=== PATIENT | female | born 1960 | race Caucasian/White ===

== ENCOUNTER → 2018-05-05 06:19 | Outpatient (CLI) | payer BC, SELFPAY ==
--- NOTE | 2018-05-05 10:14 | STRESSREP ---
Stress Test Report Exercise myocardial perfusion stress test. 58-year-old lady with a history of supraventricular tachyarrhythmias and hypertension. Stress protocol: Resting EKG demonstrates normal sinus rhythm with rate of 72 bpm normal intervals and noted resting blood pressures 122/86 centimeters of mercury. The patient exercised according to regular Kenn protocol for total duration of 6 minutes and 32 seconds. Patient maintained sinus rhythm until approximately 6 minutes and 26 seconds into the exercise. The patient then went into a wide complex tachyarrhythmia with a rate of approximately 169 bpm lasting approximately 22 beats. This was terminated with a cough. There were no ST or T-wave changes noted at rest or with peak exercise. No clinical angina was noted the resting blood pressure is 122/86 with a peak blood pressure 140/72 rate pressure product was 22,200. The maximum workload was 7.8 metabolic equivalents. Myocardial perfusion protocol. 11.8 mCi of technetium 99m sestamibi was injected at rest. The patient exercised for 6-1/2 minutes attaining 7.8 metabolic equivalents and completing 30 seconds into stage III of the Kenn protocol. At peak exercise 33.1 mCi of technetium 99m sestamibi was injected stress images were obtained stress and rest images were reconstructed and compared in the short axis vertical long and horizontal long axis. Gated images were also obtained Perfusion SPECT analysis. Review of the stress images demonstrate normal uptake of tracer noted in all areas of the myocardium. The resting images similarly demonstrated normal uptake of tracer noted in all areas of the myocardium. No areas of reversibility are noted suggest ischemia there is minimal apical striping noted. This is present on the stress and rest images to a similar extent. No obvious ischemia is noted. Gated SPECT analysis: Gated's ejection fraction was noted to be 62%. Conclusion: Exercise myocardial perfusion stress test with no evidence of ischemia noted. Preserved ejection fraction. Short run of supraventricular tachyarrhythmia noted terminating with vagal maneuver.
== END ==
LOC: CVS 06:20
PROVIDERS: Family Provider Internal Medicine; PCP Internal Medicine; Visit Provider Nurse Practitioner Family
DX: R07.9 Chest pain, unspecified (principal); I47.1 Supraventricular tachycardia
CPT/HCPCS: 78452; 93017; A9500; A4216

== ENCOUNTER 2018-05-31 21:55 | Emergency (ER) | payer BC, SELFPAY ==
[2018-05-31 21:56] VITALS: BP 160/99; PULSE 89; RESP 20; TEMP 36.7; O2SAT 95; BMI 32.1
--- NOTE | 2018-05-31 22:07 | CT_ITS ---
STUDY: CTA CHEST REASON FOR EXAM: Female, 58 years old. Upper back spasm RADIATION DOSAGE (If Supplied By Facility): CTDIvol = ( 19.86 ) mGy, DLP = ( 594.82 ) mGycm TECHNIQUE: The examination was performed with the intravenous administration of 100 ml of Isovue 370 contrast material. Post-processing of the angiographic images was performed, with multiplanar reformation and 3D reconstruction. Individualized dose optimization techniques were used for this CT. COMPARISON: None. FINDINGS: Normal enhancement of the main pulmonary artery and right and left pulmonary arteries. Normal enhancement of the bilateral peripheral pulmonary arteries. There is no demonstrated pulmonary embolism. Normal thoracic aorta and visualized great vessels. There is no demonstrated aortic dissection. There is mild cardiac enlargement. Normal mediastinum. There are calcified right hilar lymph nodes. Normal visualized trachea and bronchi. The lungs are under expanded. Marked low lung volume with elevation of the right hemidiaphragm. Compression of basilar parenchyma right greater than left base with atelectatic changes and possible airspace disease with scattered calcified nodules in the right lower lobe consistent with granulomata. Mild bronchus opacification in the lung bases and right middle lobe. Normal pleura. Normal chest wall structures. There are degenerative changes of thoracic spine. Splenic granuloma. Gallbladder is not visualized. Obesity. CT/CTA Chest W/WO Contrast IMPRESSION: No demonstrated pulmonary embolism, aneurysm, leak or arterial dissection. Marked shallow inspiratory level with compression of basilar parenchyma, bilateral atelectasis right greater than left and probable airspace disease such as an infiltrate in the right base. Electronically Signed: Tavia Ordaz MD at 0:00 EDT , Service support ,
[2018-05-31] MEDS: Ondansetron 4 MG/2 ML Vial IV (22:20)
[2018-05-31] MEDS: Morphine 4 MG/ML Syringe IV (22:20)
--- NOTE | 2018-05-31 22:22 | ED.VISSUMM ---
- ER Visit Summary Date of Service: 05/31/18 Chief Complaint: Back pain History of Present Illness: The patient is a 58 F presenting with right upper back pain. She states this started 1 week ago and has progressively worsened. She states it is worse with coughing, deep breathing, and movement. She was seen in urgent care on Saturday and diagnosed with a sinus infection. She states she does not have any sinus pain or congestion. She does have a nonproductive cough. She was started on doxycycline. She saw her primary care physician the next day and was given a muscle relaxer. She denies any direct trauma to her back. She states she does a lot of repetitive motion with her arms at work. She is scheduled to see a chiropractor on Saturday. She tried Advil at home as well. She denies chest pain or shortness of breath. Denies fever or other complaints. Physical Examination: Vitals are stable. Patient is afebrile. Alert no acute distress. HEENT exam is unremarkable. Neck is supple. Lungs are clear and equal bilaterally. Heart is regular rate and rhythm. Abdomen is soft nontender nondistended. Back: Right paraspinal thoracic muscle tenderness, no midline tenderness Extremities are unremarkable. Skin is warm and dry. No focal neurologic deficit. Remainder of exam is unremarkable. Emergency Department Course and Treatment: Patient is given morphine, Zofran IV. CBC, chemistries unremarkable. CTA chest shows no demonstrated pulmonary embolism, aneurysm, leak or arterial dissection. Marked shallow inspiratory level with compression of basilar parenchyma, bilateral atelectasis right greater than left and probable airspace disease such as an infiltrate in the right base. She is currently on her fourth day of doxycycline out of a 10 day course. She is advised to finish this antibiotic until complete. She was ambulated with a pulse ox of 93% on room air. She feels improved. She is advised to follow-up with her primary care physician. She is advised return to ED if she has any worsening complaints. Disposition: Discharged home Impression: Back pain, community acquired pneumonia This note was generated with true[employer]them dictation software. It may contain incorrect words, spelling, and punctuation that were not noted in review of the chart prior to signing ED Disposition - Plan for ED Patient: Chief Complaint: Back Instructions: ED Neck Back Pain General, ED Pneumonia Adult Prescriptions: Oxycodone HCl/Acetaminophen [Percocet 5/325] 1 tablet PO Q6H PRN PRN 3 Days #12 tablet PRN Reason: Pain Referrals: Martine Maldonado DO [Primary Care Provider] -
[2018-05-31 22:47] LABS: Absolute Lymphocyte Count 2.07 X10^3/ul (0.83-4.51); Absolute Neutrophil Count 6.3 X10^3/uL (2.0-7.7); Basophil# 0.05 X10^3/uL; Basophil% 0.5 % (0-1); Eosinophil# 0.29 X10^3/uL; Hematocrit 38.3 % (37-47); Hemoglobin 12.6 g/dl (12.0-15.0); Lymphocyte # 2.07 X10^3/ul (4.0); Lymphocyte % 21.3 % (19-41); Mean Corp Hgb Conc 32.9 g/gl (32-36); Mean Corpuscular Hgb 28.3 pg (27.0-32.0); Mean Corpuscular Volume 85.9 fL (81-99); Mean Platelet Vol. 8.9 fl (6.2-12.0); Monocyte# 0.93 X10^3/uL; Monocyte% 9.6 % (0-10); Neutrophil # 6.34 X10^3/uL (2.7-7.7); Neutrophil % 65.2 % (47-70); Platelet Count 391 K/mm3 (150-450); RBC Distribution Width SD 41.3 fl (35.1-43.9); Red Blood Count 4.46 M/mm3 (4.2-5.4); White Blood Count 9.7 K/mm3 (4.4-11.0)
[2018-05-31 22:51] LABS: POSITIVE COUNT NO; POSITIVE DIFFERENTIAL NO; POSITIVE MORPHOLOGY NO
[2018-05-31 22:57] LABS: Anion Gap 5 (5-15); BUN 13 mg/dL (7-18); BUN/Creat Ratio 15.4 RATIO (10-20); Calcium,Total 8.9 mg/dL (8.5-10.1); Chloride 105 mmol/L (98-107); Creatinine, Serum 0.85 mg/dL (0.55-1.02); EST Glomerular Filtration Rate 73 mL/min (>60); Est Glom Filt Rate - Afr Amer 88 mL/min (>60); Estimated Creatinine Clearance 68.44 ml/min; Glucose 118 mg/dL (74-106); Potassium 3.6 mmol/L (3.5-5.1); Sodium Level 139 mmol/L (136-145)
[2018-05-31 23:09] VITALS: BP 143/93; PULSE 87; RESP 14; O2SAT 91
[2018-05-31 23:35] VITALS: PULSE 79; RESP 15; O2SAT 94
[2018-06-01 00:16] VITALS: O2SAT 91
--- NOTE | 2018-06-01 00:18 | ED.DEP ---
ED Disposition - Plan for ED Patient: Chief Complaint: Back Instructions: ED Neck Back Pain General, ED Pneumonia Adult Prescriptions: Oxycodone HCl/Acetaminophen [Percocet 5/325] 1 tablet PO Q6H PRN PRN 3 Days #12 tablet PRN Reason: Pain Referrals: Martine Maldonado DO [Primary Care Provider] -
[2018-06-01] MEDS: oxyCODONE 5 MG Tablet PO (00:32)
[2018-06-01 00:33] VITALS: BP 131/92; PULSE 78; RESP 16; O2SAT 93
== END 2018-06-01 00:39 | disposition home or self-care (01) ==
LOC: ED 22:14
PROVIDERS: Emergency Provider Emergency Medicine; Family Provider Internal Medicine; PCP Internal Medicine
DX: M54.6 Pain in thoracic spine (principal); J18.9 Pneumonia, unspecified organism; I10 Essential (primary) hypertension; Z79.2 Long term (current) use of antibiotics; Z79.899 Other long term (current) drug therapy
CPT/HCPCS: 71275; 80048; 85025; 96374; 96375; 99283; Q9967; A4216; J2405

== ENCOUNTER → 2018-07-21 09:47 | Outpatient (CLI) | payer BC, SELFPAY ==
--- NOTE | 2018-07-21 09:50 | RAD_ITS ---
STUDY: X-RAY - LEFT HAND REASON FOR EXAM: Chronic pain at the base of the left thumb. TECHNIQUE: 3 view(s) of the hand. COMPARISON: Radiographs of the thumb 09/10/2017. FINDINGS: Normal radiocarpal articulation. There is mild joint space narrowing of the distal radioulnar joint. Normal visualized carpal bones. There is suspected widening of the scapholunate interval, also present on the prior study. There is joint space narrowing of the carpometacarpal articulation of the thumb. Normal second through fifth carpometacarpal joints. Normal metacarpi. Normal metacarpophalangeal joint of the thumb. There is a small marginal osteophyte of the base of the distal phalanx without joint space narrowing of the interphalangeal joint of the thumb. Normal proximal and distal phalanges of the thumb. Normal metacarpophalangeal joints of the second through fifth fingers. Normal proximal and distal interphalangeal joints of the second through fifth fingers. Normal phalanges of the second through fifth fingers. There is a small calcification dorsal to the distal diaphysis of the second middle phalanx. RAD/Hand Min 3 Views IMPRESSION: Arthrosis of the first carpometacarpal joint. Suspected chronic scapholunate ligament injury. Electronically Signed: Karri Carpenter MD at 10:10 EDT Tel , Service support ,
== END ==
PROVIDERS: Family Provider Internal Medicine; PCP Internal Medicine; Referring Provider Orthopaedic Surgery; Visit Provider Orthopaedic Surgery
DX: M79.645 Pain in left finger(s) (principal)
CPT/HCPCS: 73130

== ENCOUNTER → 2018-08-12 06:53 | Outpatient (CLI) | payer BC, SELFPAY ==
--- NOTE | 2018-08-12 12:19 | PFT ---
INTRODUCTION: The patient is a 58-year-old female that presents for pulmonary function testing secondary to a diagnosis of chronic cough. Respiratory therapy reports good patient effort. Bronchodilators were used during testing. INTERPRETATION: Forced expiration spirometry demonstrates no evidence of a large airways obstructive ventilatory defect. There was no significant response to aerosolized bronchodilators, based upon strict ATS criteria. However, the patient did have a rather robust mid flow bronchodilator response. Spirograms are of good quality and plateau normally. Body plethysmography was performed and reveals lung volumes to be within normal limits. Diffusing capacity by single breath CO is within normal limits at 94% of predicted. IMPRESSION: Grossly normal pulmonary function testing with potential stigmata of small airways disease. If asthma is of clinical concern, a methacholine challenge can be offered.
== END ==
PROVIDERS: Family Provider Internal Medicine; PCP Internal Medicine; Referring Provider Internal Medicine Critical Care Medicine; Visit Provider Internal Medicine Critical Care Medicine
DX: R05 Cough (principal); R93.89 Abnormal findings on diagnostic imaging of other specified body structures
CPT/HCPCS: 94060; 94726; 94729

== ENCOUNTER → 2018-09-26 09:08 | Outpatient (CLI) | payer BC, SELFPAY ==
[2018-08-07 07:46] VITALS: BMI 32.1
[2018-09-26 09:20] LABS: Bacteria 0 SEEN /hpf (None Seen); Mucous, Urine 0 SEEN /hpf (<or=2+)
[2018-09-26 10:37] LABS: Absolute Lymphocyte Count 1.79 X10^3/ul (0.83-4.51); Absolute Neutrophil Count 2.8 X10^3/uL (2.0-7.7); Basophil# 0.03 X10^3/uL; Basophil% 0.6 % (0-1); Eosinophil# 0.17 X10^3/uL; Eosinophils% 3.2 % (0-5); Hematocrit 42.7 % (37-47); Hemoglobin 13.7 g/dl (12.0-15.0); Lymphocyte # 1.79 X10^3/ul (4.0); Lymphocyte % 33.6 % (19-41); Mean Corp Hgb Conc 32.1 g/gl (32-36); Mean Corpuscular Hgb 27.5 pg (27.0-32.0); Mean Corpuscular Volume 85.6 fL (81-99); Mean Platelet Vol. 9.3 fl (6.2-12.0); Monocyte# 0.55 X10^3/uL; Monocyte% 10.3 % (0-10); Neutrophil # 2.77 X10^3/uL (2.7-7.7); Neutrophil % 52.1 % (47-70); POSITIVE COUNT NO; POSITIVE DIFFERENTIAL NO; POSITIVE MORPHOLOGY NO; Platelet Count 273 K/mm3 (150-450); RBC Distribution Width CV 13.6 % (11.6-14.6); RBC Distribution Width SD 42.5 fl (35.1-43.9); Red Blood Count 4.99 M/mm3 (4.2-5.4); White Blood Count 5.3 K/mm3 (4.4-11.0)
[2018-09-26 10:43] LABS: Color, Urine Yellow (Yellow); Glucose, Dipstick Normal (Normal); Ketone-Dipstick Negative (Negative); Leukocyte Esterase-Dipstick 25 /ul (Negative); Nitrite-Dipstick Negative (Negative); Occult Blood-Urine 10 /ul (Negative); Protein-Dipstick Negative (Negative); Specific Gravity, Urine 1.015 (1.002-1.030); Urine Bilirubin Dipstick Negative (Negative); Urine Clarity Clear (Clear); Urine Urobilinogen Normal (Normal); Urine pH 6.5 (5.0 - 8.0)
[2018-09-26 11:02] LABS: Microalbumin:Creatinine Ratio 9.5 mg/g CRE (<30 mg/g CRE)
[2018-09-26 11:14] LABS: Vitamin B12 280 pg/mL (211-911)
[2018-09-26 11:19] LABS: Red Blood Cells-Urine 0-5 SEEN /hpf (0-5); Squamous Epithelial Cells - UA 0-5 SEEN /hpf (5-10); White Blood Cells 0-5 SEEN /hpf (0-5)
[2018-09-26 11:21] LABS: ALB/GLOB Ratio 1.2 RATIO (0.9-2.4); AST(SGOT) 20 U/L (15-37); Alanine Aminotransfer ALT/SGPT 11 U/L (13-56); Albumin, Serum 3.7 g/dL (3.2-5.0); Alkaline Phosphatase 53 U/L (45-117); Anion Gap 6 (5-15); BUN 15 mg/dL (7-18); BUN/Creat Ratio 18.8 RATIO (10-20); Calcium,Total 8.4 mg/dL (8.5-10.1); Chloride 106 mmol/L (98-107); Cholesterol 183 mg/dL (200); EST Glomerular Filtration Rate 78 mL/min (>60); Est Glom Filt Rate - Afr Amer 94 mL/min (>60); Free T3 2.5 pg/mL (2.18-3.98); Globulin 3.1 g/dL (2.2-4.2); Glucose 93 mg/dL (74-106); High Density Lipoprotein 49 mg/dL; Potassium 3.8 mmol/L (3.5-5.1); Protein, Total 6.8 g/dL (6.4-8.2); Sodium Level 141 mmol/L (136-145); T4 Free Direct 1.38 ng/dL (0.76-1.46); Thyroid Stim Hormone (TSH) 1.31 uIU/mL (0.358-3.74); Triglycerides 60 mg/dL; Very Low Density Lipoprotein 12 mg/dL (5-40)
== END ==
PROVIDERS: Family Provider Internal Medicine; PCP Internal Medicine; Referring Provider Internal Medicine; Visit Provider Internal Medicine
DX: I10 Essential (primary) hypertension (principal); E03.9 Hypothyroidism, unspecified; E53.8 Deficiency of other specified B group vitamins
CPT/HCPCS: 36415; 80053; 80061; 81001; 82043; 82570; 82607; 84439; 84443; 84481; 85025

== ENCOUNTER → 2019-04-29 | Outpatient (CLI) | payer BC, SELFPAY ==
[2019-04-29 11:38] VITALS: BMI 32.1
== END | disposition home or self-care (01) ==
LOC: LABSPEC 14:28
PROVIDERS: Family Provider Internal Medicine; PCP Internal Medicine; Referring Provider Physician Assistant; Visit Provider Physician Assistant
DX: J02.9 Acute pharyngitis, unspecified (principal)
CPT/HCPCS: 87081

== ENCOUNTER → 2019-05-04 | Outpatient (CLI) | payer BC, SELFPAY ==
[2019-04-29 11:38] VITALS: BMI 32.1
== END | disposition home or self-care (01) ==
LOC: LABSPEC 15:30
PROVIDERS: Family Provider Internal Medicine; PCP Internal Medicine; Referring Provider Otolaryngology Otolaryngology/Facial Plastic Surgery; Visit Provider Otolaryngology Otolaryngology/Facial Plastic Surgery
DX: J32.9 Chronic sinusitis, unspecified (principal); J02.9 Acute pharyngitis, unspecified
CPT/HCPCS: 87070; 87205

== ENCOUNTER → 2019-08-10 | Outpatient (CLI) | payer BC, SELFPAY ==
[2019-08-11 06:34] VITALS: BMI 32.5
[2019-08-11 14:11] LABS: Bacteria 0 SEEN /hpf (None Seen); Mucous, Urine 0 SEEN /hpf (<or=2+); Red Blood Cells-Urine 0 SEEN /hpf (0-5); White Blood Cells 0 SEEN /hpf (0-5)
[2019-08-11 14:31] LABS: Color, Urine Yellow (Yellow); Glucose, Dipstick Normal (Normal); Ketone-Dipstick Negative (Negative); Leukocyte Esterase-Dipstick Negative /ul (Negative); Nitrite-Dipstick Negative (Negative); Occult Blood-Urine Negative /ul (Negative); Protein-Dipstick Negative (Negative); Specific Gravity, Urine 1.015 (1.002-1.030); Urine Bilirubin Dipstick Negative (Negative); Urine Clarity Clear (Clear); Urine Urobilinogen Normal (Normal)
[2019-08-11 14:33] LABS: Squamous Epithelial Cells - UA 0-5 SEEN /hpf (5-10)
== END | disposition home or self-care (01) ==
LOC: LABSPEC 08-11 13:48
PROVIDERS: Family Provider Internal Medicine; PCP Internal Medicine; Referring Provider Physician Assistant Surgical; Visit Provider Physician Assistant Surgical
DX: R30.0 Dysuria (principal)
CPT/HCPCS: 81001; 87086; 87088

== ENCOUNTER → 2019-09-14 14:49 | Outpatient (CLI) | payer BC, SELFPAY ==
[2019-08-11 06:34] VITALS: BMI 32.5
[2019-09-17 16:07] LABS: Age Gdln ACOG Testing 30-65 (.)
[2019-09-18 08:50] LABS: HPV APTIMA, High Risk Negative (Negative)
[2019-09-18 08:51] LABS: HPV Reflexed? YES, CHARGE PATIENT
== END ==
PROVIDERS: Visit Provider Obstetrics & Gynecology
DX: Z12.4 Encounter for screening for malignant neoplasm of cervix (principal)
CPT/HCPCS: 87624; 88175; G0145

== ENCOUNTER → 2019-09-30 16:15 | Outpatient (CLI) | payer BC, SELFPAY ==
[2019-08-11 06:34] VITALS: BMI 32.5
--- NOTE | 2019-09-30 16:17 | BI_ITS ---
MAMMOGRAPHY - BILATERAL SCREENING REASON FOR EXAM: Female, 59 years old. Routine annual screening examination. PERTINENT HISTORY: Sister with breast cancer. Mother with breast cancer. Grandmother with breast cancer. TECHNIQUE: Digital bilateral breast lety (3D mammographic acquisition) in the CC and MLO projections. 2-D mediolateral oblique (MLO) and craniocaudad (CC) views of both breasts were obtained. CAD: Full Field Digital Mammography with Computer Added Detection was performed. COMPARISON: Comparison is made with prior examination dated September 09, 2017 and January 30, 2016. FINDINGS: Breast Composition: The breasts are almost entirely fatty. There are no dominant masses or suspicious calcifications. Stable benign-appearing bilateral axillary lymph nodes. Stable 5.7 mm well-defined nodule in the deep mid lateral aspect of the left breast suggestive of a small intramammary lymph node. No other significant abnormalities are identified. There has been no significant change since the prior study. BI/SCREEN MAMM (CAD) W/LETY BILAT IMPRESSION: Stable bilateral screening mammogram. Yearly follow-up mammogram recommended. (A) ASSESSMENT CATEGORY: BIRADS Category 2: Benign. A letter regarding these results will be sent to the patient by the facility within 30 days. Approximately 10% of breast cancers are not detected by mammography. A normal mammogram should not delay biopsy of a clinically suspicious abnormality. [id number] Electronically Signed: Nestor Bunn, at 8:48 EST , Service support ,
== END ==
PROVIDERS: Family Provider Internal Medicine; PCP Internal Medicine; Referring Provider Obstetrics & Gynecology; Visit Provider Obstetrics & Gynecology
DX: Z12.31 Encounter for screening mammogram for malignant neoplasm of breast (principal)
CPT/HCPCS: 77063; 77067

== ENCOUNTER → 2020-08-27 10:31 | Outpatient (CLI) | payer BC, SELFPAY ==
[2019-08-11 06:34] VITALS: BMI 32.5
[2020-08-27 10:36] LABS: Mucous, Urine 0 SEEN /hpf (<or=2+); Red Blood Cells-Urine 0 SEEN /hpf (0-5)
[2020-08-27 11:06] LABS: Color, Urine Yellow (Yellow); Glucose, Dipstick Normal (Normal); Ketone-Dipstick 5 mg/dl (Negative); Leukocyte Esterase-Dipstick 100 /ul (Negative); Nitrite-Dipstick Negative (Negative); Occult Blood-Urine 10 /ul (Negative); Protein-Dipstick Negative (Negative); Urine Bilirubin Dipstick Negative (Negative); Urine Clarity Sl. Cloudy (Clear); Urine Urobilinogen Normal (Normal)
[2020-08-27 11:07] LABS: Absolute Lymphocyte Count 2.06 X10^3/uL (0.83-4.51); Absolute Neutrophil Count 3.2 X10^3/uL (2.0-7.7); Basophil# 0.04 X10^3/uL; Basophil% 0.7 % (0-1); Eosinophil# 0.15 X10^3/uL; Eosinophils% 2.5 % (0-5); Hematocrit 44.1 % (37-47); Hemoglobin 14.1 g/dL (12.0-15.0); Lymphocyte # 2.06 X10^3/ul (4.0); Lymphocyte % 33.8 % (19-41); Mean Corpuscular Volume 87.5 fL (81-99); Mean Platelet Vol. 9.4 fl (6.2-12.0); Monocyte# 0.59 X10^3/uL; Monocyte% 9.7 % (0-10); NRBC Flagged by Analyzer 0 % (0-5); Neutrophil # 3.24 X10^3/uL (2.7-7.7); Platelet Count 323 K/mm3 (150-450); RBC Distribution Width SD 41.9 fl (35.1-43.9); Red Blood Count 5.04 M/mm3 (4.2-5.4); White Blood Count 6.1 K/mm3 (4.4-11.0)
[2020-08-27 11:13] LABS: Bacteria RARE /hpf (None Seen); Squamous Epithelial Cells - UA 0-5 SEEN /hpf (5-10); White Blood Cells 0-5 SEEN /hpf (0-5)
[2020-08-27 11:27] LABS: ALB/GLOB Ratio 1.2 RATIO (0.9-2.4); AST(SGOT) 21 U/L (15-37); Alanine Aminotransfer ALT/SGPT 18 U/L (13-56); Albumin, Serum 3.9 g/dL (3.2-5.0); Alkaline Phosphatase 46 U/L (45-117); Anion Gap 5 (5-15); BUN 15 mg/dL (7-18); BUN/Creat Ratio 17.5 RATIO (10-20); Calcium,Total 8.4 mg/dL (8.5-10.1); Chloride 101 mmol/L (98-107); Cholesterol 202 mg/dL (200); Creatinine, Serum 0.86 mg/dL (0.55-1.02); EST Glomerular Filtration Rate 71 mL/min (>60); Est Glom Filt Rate - Afr Amer 86 mL/min (>60); Globulin 3.3 g/dL (2.2-4.2); Glucose 97 mg/dL (74-106); High Density Lipoprotein 53 mg/dL; Potassium 3.6 mmol/L (3.5-5.1); Protein, Total 7.2 g/dL (6.4-8.2); Sodium Level 137 mmol/L (136-145); Thyroid Stim Hormone (TSH) 1.42 uIU/mL (0.358-3.74); Triglycerides 68 mg/dL; Very Low Density Lipoprotein 14 mg/dL (5-40)
[2020-08-27 11:42] LABS: Microalbumin,Random Urine 15.4 mg/L (NO RANGE EST.)
== END ==
PROVIDERS: PCP Internal Medicine; Referring Provider Internal Medicine; Visit Provider Internal Medicine
DX: I10 Essential (primary) hypertension (principal); E03.9 Hypothyroidism, unspecified
CPT/HCPCS: 36415; 80053; 80061; 81001; 82043; 82570; 84443; 85025

== ENCOUNTER → 2020-11-17 16:43 | Outpatient (CLI) | payer OTHER, SELFPAY ==
[2020-08-30 12:18] VITALS: BMI 31.9
--- NOTE | 2020-11-17 16:46 | MRI_ITS ---
STUDY: MRI LEFT KNEE REASON FOR EXAM: Female, 60 years old. Pain TECHNIQUE: Standardized fat and water weighted pulse sequences were obtained in all 3 orthogonal planes. COMPARISON: X-ray November 08, 2020 FINDINGS: There is loss of substance with tear of the posterior horn and body of the medial meniscus, series 3 images through . Normal hyaline cartilage of the medial femorotibial compartment. Normal medial femoral condyle and tibial plateau. There is a partial sprain of the MCL with interstitial and periligamentous edema. Normal distal semimembranosus, gracilis and semitendinosus tendons. Normal lateral meniscus. There is diffuse, less than 50% thickness articular cartilage loss of the lateral femorotibial compartment. Normal lateral femoral condyle and tibial plateau. Normal proximal tibiofibular articulation. Normal lateral collateral (fibular) ligament. Normal popliteus tendon. Normal biceps femoris tendon. Normal anterior cruciate ligament (ACL). Normal posterior cruciate ligament (PCL). There is arthrosis of the patellofemoral articulation. There is diffuse, greater than 50% thickness articular cartilage loss of the patellofemoral compartment. Normal medial and lateral patellar retinaculum. Normal quadriceps tendon. Normal patellar tendon. Normal Hoffa''s fat pad. There is a small volume joint effusion. There is a 6.3 cm Duggan''s cyst. The soft tissues are unremarkable. The otherwise visualized osseous structures are unremarkable. MRI/Lower Ext Joint Only (Routine) IMPRESSION: Medial meniscus tear Medial collateral ligament sprain. Degenerative changes Joint effusion with popliteal cyst Electronically Signed: Nelson Panchal MD at 0:00 EST , Service support ,
== END ==
PROVIDERS: PCP Internal Medicine; Referring Provider Orthopaedic Surgery; Visit Provider Orthopaedic Surgery
DX: S83.242A Other tear of medial meniscus, current injury, left knee, initial encounter (principal)
CPT/HCPCS: 73721

== ENCOUNTER 2020-12-14 05:50 | Day surgery (SDC) | payer OTHER, SELFPAY ==
[2020-08-30 12:18] VITALS: BMI 31.9
--- NOTE | 2020-12-14 06:16 | HP_ITS ---
I have re-examined the patient. There are no clinical changes since date of exam. Intake Intake Visit Reasons: LEFT KNEE Allergies acetaminophen [From Vicodin] Allergy (Verified 11/08/20 14:22) Unknown hydrocodone [From Vicodin] Allergy (Verified 11/08/20 14:22) Unknown Penicillins [PCN] Adverse Reaction (Verified 11/08/20 14:22) Hives [facility] Medical History Essential (primary) hypertension (Chronic) Anxiety (Chronic) Back pain (Chronic) Colon polyp (Chronic) Congenital hypothyroidism (Chronic) Costochondritis (Chronic) Degeneration, intervertebral disc, lumbar (Chronic) Female pelvic pain (Chronic) GERD (gastroesophageal reflux disease) (Chronic) Insomnia (Chronic) ELÍAS (obstructive sleep apnea) (Chronic) Obesity (Chronic) Osteoarthritis (Chronic) PVD (peripheral vascular disease) (Chronic) RLS (restless legs syndrome) (Chronic) Radiculopathy of cervical region (Chronic) Segmental and somatic dysfunction of cervical region (Chronic) Segmental and somatic dysfunction of head region (Chronic) Segmental and somatic dysfunction of lumbar region (Chronic) Segmental and somatic dysfunction of thoracic region (Chronic) Thoracic neuritis (Chronic) Vitamin B12 deficiency (Chronic) Pneumonia (Resolved) Back pain (Inactive) Diastolic dysfunction (Inactive) Paroxysmal supraventricular tachycardia (Inactive) Surgical History History of cholecystectomy (Resolved) History of lumbar surgery (Resolved) History of tonsillectomy (Resolved) Hx of hernia repair (Resolved) Family History Mother CAD (coronary artery disease) Breast cancer CVA (cerebral vascular accident) Dementia Brother CAD (coronary artery disease) Sister Breast cancer Grandmother Breast cancer Father Dementia Social History (Updated 11/24/20 @ 11:[address] Emily Leon DO) household members: spouse housing: house current occupational status: employed current occupation: [employer] pets and animals: Yes pets and animals: dog(s) Smoking Status: Never smoker second hand exposure: No alcohol intake: never substance use type: does not use caffeine: Yes Type: coffee Number of servings: 2 HPI LEFT KNEE: Surgical H&P: Yes Details: Parts of this documentation were recorded by a scribe, this documentation accurately reflects the service provided and the decisions made by me, Dr. Emliy Leon, 11/24/20 1021. ROSALINDA GARCIA is a 60 year old F here today for F/U on left knee after having MRI of the knee. Continues to have all medial knee pain. She states that she does have painful popping of the knee and when she stands at times her knee feels like it will give out. Denies numbness, tingling or other associated symptoms. Denies any changes in medications or allergies. ROS Musc Reports joint pain, Denies joint swelling, Reports limited joint movement, Denies numbness, Reports stiffness, Denies tingling Skin/Breast Reports system reviewed and no additional complaints, except as docu Neuro Yes system reviewed and no additional complaints, except as docu, No numbness, No tingling Ortho Exam Left Knee Skin/Wound: Yes CDI, No ecchymosis, No erythema, Yes swelling Knee ROM: Yes ROM-Extension -20 to 0 (unable) Examination: Yes med jt line tenderness, Yes Pain with flexion, Yes Consuelo's Test Stability: NML: Anterior Drawer, NML: Raza, NML: Posterior Drawer Patella Grind: Yes Negative Kiah Assessment & Plan Problems 1. Tear of medial meniscus of left knee, current, unspecified tear type, subsequent encounter S83.242D Plan Personally reviewed patients MRI of the left knee. Educated that she does have a medial meniscus tear. There is not a lot of cartilage wear noted on MRI or x- rays. Treatment options are do nothing or PT or bracing or injection or left knee scope for meniscectomy vs meniscus repair. Educated that if she does have the knee scope this can cause her to develop OA sooner than she would if she didn't have surgery. Reviewed the pre-operative plans with the patient. Risks and benefits of the procedure were fully explained, including but not limited to infection, neurovascular injury, continued pain, arthritis, stiffness, need for further surgery, re-injury, DVT, PE, general risks of anesthesia, and loss of limb or life. The patient understands all the risks and does wish to proceed with written consent for left knee arthroscopy medial meniscectomy vs meniscus repair, surgery as indicated. She wishes to have surgery the week of 12/12/2020. Follow up 2 weeks post op or sooner if pain, swelling, numbness or associated symptoms, or concerns develop. All questions answered. Patient in agreement of plan. Plan Detail Goals Decrease spasm and inflammation Improve ROM Improve ability to lift Barriers Posture Coding Level of Care Code Off vis,est,level 4 Diagnoses Tear of medial meniscus of left knee, current, unspecified tear type, subsequent encounter S83.242D ??Encounter type: subsequent encounter ??Meniscus tear of knee type: unspecified type ??Tear current or old: current COVID (Procedure Consent) Procedure Criteria Procedure Criteria: Yes Elective The surgeon/proceduralist and patient have discussed in detail the risk of exposure to and/or potential harm posed by the COVID-19 virus with having a surgery/procedure at this time versus the risk of? delaying the surgery/procedure. It is not possible to know either the risk of delaying the surgery or procedure or chance of getting an infection with perfect accuracy, but a joint decision was made between the patient and the surgeon/proceduralist ?to proceed at this time with the scheduled surgery/procedure as indicated on the consent form.
[2020-12-14 06:20] VITALS: BP 124/90; PULSE 75; RESP 18; TEMP 36.6; O2SAT 97; BMI 31.2
[2020-12-14] MEDS: Lactated Ringers 1,000 ML 100 ML IV (06:20)
[2020-12-14] MEDS: Cefazolin 2 GM in 0.9% Normal Saline 100 ML IV (07:19)
--- NOTE | 2020-12-14 08:06 | PCM.DC.ORTHO ---
Discharge Diet: No Restrictions - Remove dressings postop day 4 and apply Band-Aids to incision sites, may shower and get incision wet postop day 4, weight-bear as tolerated left leg, call with increased pain numbness tingling or further issues arise, call if calf pain or calf swelling, start aspirin 325 bid postop day 1, Discharge Activity: May Not Drive May shower in (days): 1 Ice area for (Minutes): 20 - Every hour while awake. Weight Bearing Status: Weight bearing as tolerated Keep extremity elevated above heart level: Operative Extremity Call your doctor if your incision/area has: Continuous Slow Oozing, Sudden Increased Bleeding, Increased Pain/ Swelling, Increased Redness, Foul Smelling Discharge Call your doctor if you observe: Fever of 101 or Higher, Coldness, Increased Pain, Numbness or Tingling, Change in Color, Calf discomfort Allergies/Adverse Reactions: Allergies acetaminophen [From Vicodin] Allergy (Verified 12/14/20 06:25) Unknown hydrocodone [From Vicodin] Allergy (Verified 12/14/20 06:25) Unknown Penicillins [PCN] Allergy (Verified 12/14/20 06:25) Hives Medications to take at Discharge Carbidopa/Levodopa 25/100 [Sinemet] 2 tab PO QHS 08/04/16 Lisinopril [Zestril] 20 mg PO DAILY 08/04/16 traZODone [Desyrel] 200 mg PO QHS 08/04/16 levothyroxine 112 mcg tablet 112 mcg PO DAILY #90 tab 07/14/19 cholecalciferol (vitamin D3) 25 mcg (1,000 unit) capsule 25 mcg PO DAILY 08/30/20 cyanocobalamin (vitamin B-12) 1,000 mcg/mL injection solution 100 mcg SC QMONTH ml 08/30/20 hydrochlorothiazide 25 mg tablet 25 mg PO DAILY #90 tab 08/30/20 Hydroxyzine HCl 25 mg PO QHS 12/07/20 Hydrocodone Bitart/Apap 5-325 [[place] 5MG-325MG] 1 - 2 tablet PO Q6H PRN PRN 5 Days #40 tablet 12/14/20 The following prescriptions were given: Hydrocodone Bitart/Apap 5-325 [[place] 5MG-325MG] 1 - 2 tablet PO Q6H PRN PRN 5 Days #40 tablet PRN Reason: Pain Transmission Status: Sent to [facility] Primary Care Physician: Martine Maldonado DO [Primary Care Provider] - Test Results: Test results from this visit will be discussed in further detail at your follow-up appointment, if applicable. Please Follow Up With: Emily Leon DO - [phone]
--- NOTE | 2020-12-14 08:08 | PCM.OPRPT ---
Report of Operation Date of Procedure: 12/14/20 Pre-Operative Diagnosis: left knee medial meniscus tear, osteoarthritis Post-Operative Diagnosis: same, lateral meniscus tear Surgery/Procedure Performed:: salk, pmm, plm, trochleoplasty, mfc chondroplasty electroless plater: Americo Carranza Type of Anesthesia:: General Anesthesiologist: Arley Cisse Fluids Replaced: 800cc lr Description of Procedure: Preop note Patient is a 60-year-old female with continued left knee pain instability locking. Failed conservative treatment MRI confirms medial meniscus tear osteoarthritis. Risk benefits and alternatives surgery discussed with patient. Risk include but not limited to blood loss, blood clot, infection, neurovascular, failure procedure, loss of life and loss of limb. Patient is aware like proceed with left knee arthroscopy repair as indicated. On physical exam she does have tenderness along her medial joint line she has negative Homans and no obvious effusion today. We discussed the current risk associated COVID-19. While it is understood that there is a community spread of COVID 19 the risk of jaimie COVID-19 while at [facility] is very low, however, the risk cannot be completely mitigated because of the community spread of the disease. We discussed in detail the risk of exposure to and or potential harm posed by the COVID-19 virus with having a surgery/procedure at this time versus the risk of delaying the surgery/procedure. Is not possible to know either the risk of delaying the surgery procedure or chance of getting an infection with perfect accuracy, but a joint decision was made to proceed at this time with a schedule surgery/procedure as indicated on the consent form. Patient was notified that we will need to comply with any screening or testing [facility] wishes to perform or that surgery may be delayed for any positive results. Operative note Patient seen and examined preoperative holding area. Left knee was marked. Patient brought to the operating procedure placed supine on the operating table. Signed, anesthesia, antibiotics were administered. The left leg was prepped prepped and draped in usual sterile technique with a tourniquet around her upper thigh. All bony prominences well-padded and SCDs placed on her contralateral limb. We then marked out our portal placement anterior lateral anteromedial portal placements for her left knee. Left leg was then elevate exsanguinated and tourniquet was raised her pressure of 250 torr. Timeout was performed. We then used an 11 blade to create her anterior lateral portal and direct began our diagnostic arthroscopy. Patellofemoral joint was unremarkable with the patella side however on the trochlear side she had grade 3 eburnated changes throughout. We then moved to the medial joint line and created anterior medial portal under direct visualization. Greater than the probe there was actually a flipped mid body medial meniscus tear that was flipped into the medial joint line we brought the foot portion out into the articular surface and then trimmed back with combination of a basket and shaver. We then reinserted our probe and made sure we had a stable remnant meniscus remaining which we did have. There was some grade 2 fibrillated changes and some grade 3 eburnated changes, throughout the medial femoral condyle this was gently debrided back with a shaver very loosely. The ACL and PCL were present in the notch. The medial tibial plateau was intact and stable probing. We then moved to the lateral joint line. The lateral femoral condyle was intact stable probing. There was a fissure in the lateral tibial plateau and there is a radial little parrot-beak tear of the posterior horn of the lateral meniscus. With this was resected back with combination of shaver and a basket. We then gently debrided back the trochlea as well as we did atrophic past as well as the [facility] chondroplasty medial lateral meniscectomies. The knee was then irrigated copious sterile saline. We injected the knee with 8 cc prilocaine core percent and 2 cc Kenalog 40. Sterile dressings were applied after the incision was closed with interrupted 4-0 nylon stitches. Tourniquet was deflated for total working time of 21 minutes. Patient taught procedure well no complications transferred recovery room in stable condition. Postoperative Weight-bear as tolerated left leg Pharmacy has pain prescription Start aspirin 325 twice daily tomorrow We will give pictures to patient in 2 weeks Call with increased pain numbness tingling further issues arise Dragon disclaimer
[2020-12-14] MEDS: Mupirocin Ointment 22gm Tube 1 APPLIC (08:09)
[2020-12-14] MEDS: Epinephrine (1 mg/ml) 1 MG/ML VIAL (08:09)
[2020-12-14] MEDS: Bupivacaine Mpf 0.5% 30 ML VIAL (08:10)
[2020-12-14] MEDS: Triamcinolone Acetonide 40 MG/ML Vial (08:10)
[2020-12-14 08:17] VITALS: BP 124/77; BP 124/90; PULSE 88; RESP 16; TEMP 36.3; O2SAT 94
[2020-12-14 08:26] VITALS: BP 107/81; BP 124/90; PULSE 71; RESP 18; O2SAT 94
[2020-12-14 08:30] VITALS: BP 116/77; BP 124/90; PULSE 70; RESP 18; O2SAT 97
[2020-12-14 08:41] VITALS: BP 124/90; BP 126/82; PULSE 70; RESP 18; TEMP 36.1; O2SAT 100
[2020-12-14 09:20] VITALS: BP 124/90; BP 128/68; PULSE 65; RESP 16; TEMP 36.3; O2SAT 95
== END 2020-12-14 09:22 | disposition home or self-care (01) ==
LOC: SDC 05:52 → AC 05:52
PROVIDERS: PCP Internal Medicine; Referring Provider Orthopaedic Surgery; Visit Provider Orthopaedic Surgery
PROC: (CPT 29882; principal; 2020-12-14 07:10)
DX: S83.242A Other tear of medial meniscus, current injury, left knee, initial encounter (principal); S83.282A Other tear of lateral meniscus, current injury, left knee, initial encounter; M17.12 Unilateral primary osteoarthritis, left knee; I10 Essential (primary) hypertension; F41.9 Anxiety disorder, unspecified; E03.1 Congenital hypothyroidism without goiter; K21.9 Gastro-esophageal reflux disease without esophagitis; E66.9 Obesity, unspecified; I73.9 Peripheral vascular disease, unspecified; G47.30 Sleep apnea, unspecified; G25.81 Restless legs syndrome; Z68.31 Body mass index [BMI] 31.0-31.9, adult; Z20.822 Contact with and (suspected) exposure to COVID-19; Z79.899 Other long term (current) drug therapy; X58.XXXA Exposure to other specified factors, initial encounter; Y93.89 Activity, other specified; Y92.89 Other specified places as the place of occurrence of the external cause; Y99.8 Other external cause status
CPT/HCPCS: 29880; 87426; C9803; J7120; J2405

== ENCOUNTER → 2020-12-22 08:09 | Outpatient (CLI) | payer OTHER, SELFPAY ==
[2020-12-14 06:20] VITALS: BMI 31.2
--- NOTE | 2020-12-22 08:10 | BI_ITS ---
MAMMOGRAPHY - BILATERAL SCREENING REASON FOR EXAM: Female, 60 years old. Routine annual screening examination. PERTINENT HISTORY: Sister with breast cancer. Mother with breast cancer. Grandmother with breast cancer. TECHNIQUE: Digital bilateral breast lety (3D mammographic acquisition) in the CC and MLO projections. 2-D mediolateral oblique (MLO) and craniocaudad (CC) views of both breasts were obtained. CAD: Full Field Digital Mammography with Computer Added Detection was performed. COMPARISON: Comparison is made with prior study dated 09/30/2019 and 09/09/2017. FINDINGS: Breast Composition: The breasts are almost entirely fatty. There are no dominant masses or suspicious calcifications. Stable small benign appearing bilateral axillary lymph nodes. Stable 5.7 mm well-defined nodule in the deep mid lateral aspect of the left breast suggestive of a small intramammary lymph node. No other significant abnormalities are identified. There has been no significant change since the prior study. BI/SCRN MAMM (CAD)W/LETY BILAT IMPRESSION: Stable bilateral screening mammogram. Yearly follow-up mammogram recommended. (A) ASSESSMENT CATEGORY: BIRADS Category 2: Benign. A letter regarding these results will be sent to the patient by the facility within 30 days. Approximately 10% of breast cancers are not detected by mammography. A normal mammogram should not delay biopsy of a clinically suspicious abnormality. [id number] Electronically Signed: Nestor Bunn MD at 8:50 EST , Service support ,
== END ==
PROVIDERS: PCP Internal Medicine; Referring Provider Student in an Organized Health Care Education/Training Program; Visit Provider Student in an Organized Health Care Education/Training Program
DX: Z12.31 Encounter for screening mammogram for malignant neoplasm of breast (principal)
CPT/HCPCS: 77063; 77067

== ENCOUNTER 2021-01-18 12:30 | Outpatient (RCR) | payer OTHER, SELFPAY ==
--- NOTE | 2021-02-23 10:23 | HP.PT.NRP ---
ROSALINDA GARCIA was seen in my office for initial evaluation on 01/02/21. The following Plan of Care was established for this patient: Initial Frequency: 2x /Week Initial Duration: 4 Weeks Patient/Client Instruction: Educate patient on: Plan of Care For the Purpose of:: To improve muscle performance and motor function Therapeutic Exercise to Include: Strength training, Power training, Endurance training, Balance training, Body mechanics, Postural training, Flexibilty training For the Purpose of:: To improve muscle performance and motor function, To increase tolerance to activity/condition/position Cryotherapy (ice pack, ice massage): Yes Thermo therapy (hot pack): Yes This patient was last seen in our office . Pertinent comments regarding their Physical therapy will appear below: Patient has not attended PT in over 30 days, appropriate for d/c and return to MD for further evaluation as needed. At this point I will be discontinuing this patient from physical therapy. I would be happy to see this patient again in the future if found appropriate by the physician. Thank you! Kim Cooney DPT
== END 2021-01-18 19:00 | disposition home or self-care (01) ==
LOC: PT 12:30
PROVIDERS: PCP Internal Medicine; Visit Provider Orthopaedic Surgery
DX: Z47.89 Encounter for other orthopedic aftercare (principal)
CPT/HCPCS: 97110; 97162; 97530

== ENCOUNTER → 2021-07-24 07:20 | Outpatient (CLI) | payer OTHER, SELFPAY ==
--- NOTE | 2021-07-24 07:21 | MRI_ITS ---
STUDY: MRI RIGHT KNEE REASON FOR EXAM: Right knee pain around the patella for 3 weeks, right knee injury. TECHNIQUE: Standardized fat and water weighted pulse sequences were obtained in all 3 orthogonal planes. COMPARISON: Radiographs 01/24/2021. FINDINGS: There are very small vertical tears of the posterior horn of the medial meniscus (proton-density sagittal images 32, 33). There is arthrosis of the medial femorotibial compartment with partial-thickness chondral loss of the medial femoral condyle (T2 sagittal image 18). Normal medial femoral condyle and tibial plateau. Normal medial collateral ligamentous complex (MCL). Normal distal semimembranosus, gracilis and semitendinosus tendons. There is a radial tear of the posterior horn of the lateral meniscus (T2 coronal image 13; T2 sagittal images 8-10). There is arthrosis of the lateral femorotibial compartment with partial-thickness chondral loss at the posterior aspect (T2 sagittal image 7). Normal lateral femoral condyle and tibial plateau. Normal proximal tibiofibular articulation. Normal lateral collateral (fibular) ligament. Normal popliteus tendon. Normal biceps femoris tendon. There is an anterior cruciate ligament cyst (T2 axial images 14-16; T2 sagittal images 11, 12). Normal posterior cruciate ligament (PCL). Normal congruent patellofemoral articulation. There is arthrosis of the patellofemoral compartment with partial-thickness chondral loss (T2 sagittal image 12). Normal medial and lateral patellar retinaculum. Normal visualized quadriceps tendon. Normal patellar tendon. Normal Hoffa''s fat pad. There is a small joint effusion. There is a popliteal cyst measuring approximately 5.8 cm in length (T2 sagittal images 15-20). The otherwise visualized osseous structures are unremarkable. MRI/Lower Ext Joint Only (Routine) IMPRESSION: Radial tear of the lateral meniscus. Very small medial meniscal tear. Tricompartmental arthrosis. Anterior cruciate ligament cyst. Small joint effusion. Popliteal cyst. Electronically Signed: Karri Carpenter MD at 8:38 EDT Tel , Service support ,
== END ==
PROVIDERS: PCP Internal Medicine
DX: M25.561 Pain in right knee (principal)
CPT/HCPCS: 73721

== ENCOUNTER 2021-08-15 10:25 | Day surgery (SDC) | payer OTHER, SELFPAY ==
[2021-08-15 10:44] VITALS: BP 114/72; PULSE 98; RESP 16; TEMP 37.3; O2SAT 96; BMI 32.2
[2021-08-15] MEDS: Lactated Ringers 1,000 ML 100 ML IV (10:50)
[2021-08-15] MEDS: Lidocaine 1% /Epi 1:100 (20ml) 20 ML Vial (12:42)
[2021-08-15] MEDS: Epinephrine (1 mg/ml) 1 MG/ML VIAL (12:43)
[2021-08-15] MEDS: Bupivacaine Mpf 0.5% 30 ML VIAL (13:00)
[2021-08-15] MEDS: MethylPREDNISolone Acetate 40 MG/ML Vial IM (13:00)
--- NOTE | 2021-08-15 13:03 | HP.PCM_ITS ---
History and Physical Date of Admission: 08/15/21 Date of Service: 07/28/21 MR#:[id number]:[id number]: ROSALINDA GARCIA [facility] #:[id number] Provider: BOBBY Newell/Sex: 61/F [facility] [place]Signed Intake Intake Visit Reasons: RIGHT KNEE Chief Complaint: neck and upper back pain Allergies acetaminophen [From Vicodin] Allergy (Verified 07/12/21 10:59) Unknown hydrocodone [From Vicodin] Allergy (Verified 07/12/21 10:59) Unknown Penicillins [PCN] Allergy (Verified 07/12/21 10:59) Hives PENDING SALE TO [facility] Medical History (Updated 07/12/21 @ 13:28 by Julisa Rodriguez) Anxiety Back pain Back pain Colon polyp Congenital hypothyroidism Costochondritis Degeneration, intervertebral disc, lumbar Diastolic dysfunction Essential (primary) hypertension Female pelvic pain GERD (gastroesophageal reflux disease) Insomnia Obesity ELÍAS (obstructive sleep apnea) Osteoarthritis Paroxysmal supraventricular tachycardia Pneumonia PVD (peripheral vascular disease) Radiculopathy of cervical region RLS (restless legs syndrome) Segmental and somatic dysfunction of cervical region Segmental and somatic dysfunction of head region Segmental and somatic dysfunction of lumbar region Segmental and somatic dysfunction of thoracic region Strain of right knee Thoracic neuritis Vitamin B12 deficiency Surgical History History of cholecystectomy History of lumbar surgery History of tonsillectomy Hx of hernia repair Family History Mother CAD (coronary artery disease) Breast cancer CVA (cerebral vascular accident) Dementia Brother CAD (coronary artery disease) Sister Breast cancer Grandmother Breast cancer Father Dementia Social History household members: spouse housing: house current occupational status: employed current occupation: [employer] pets and animals: Yes pets and animals: dog(s) Smoking Status: Never smoker second hand exposure: No alcohol intake: never substance use type: does not use caffeine: Yes Type: coffee Number of servings: 2 HPI RIGHT KNEE Details: Parts of this documentation were recorded by a scribe, this documentation accurately reflects the service provided and the decisions made by me, BOBBY Reed 07/28/21 0806. ROSALINDA GARCIA is a 61 year old F here today for F/U on right knee after having MRI of the knee. She continues to have medial knee pain and states that she is now having pain over her knee cap. She has not been walking with crutches because this causes her hip and back to become sore. She has been taking Advil for the pain. She has also been using ice, heat, topical rubs, and a brace, which help minimally. She is currently off work, she works at [employer]. States at her job she has to do a lot of heavy lifting, pivoting, going up and down off a platform, and pushing a pedal with her right foot. States she went to the store yesterday for groceries and had a very hard time getting through the store and had to stop multiple times due to concerns of instability and pain. States most of her pain is felt with weightbearing. Denies numbness, tingling or other associated symptoms. This past year she had a steroid injection and Euflexxa injections into her right knee and these did not help her at all she states. Last steroid injection 01/24/2021. Last Euflexxa injection 04/20/2021. ROS [facility] Reports abnormal gait (due to pain), Reports arthralgias, Reports joint swel ling, Reports limited range of motion, Denies numbness, Reports radiating pain into limb and Denies tingling Skin/Breast Reports system reviewed and no additional complaints, except as documented Neuro Yes system reviewed and no additional complaints, except as documented, Yes abnormal gait (due to pain), No numbness and No tingling Ortho Exam General General: Yes no acute distress Neurologic: Yes alert Psychologic: Yes reasonable and appropriate Right Knee Skin/Wound: No erythema, No ecchymosis and No swelling Homans Sign: No Knee ROM: No ROM-Extension -20 to 0 and Yes ROM-Flexion 0-140 (94 degrees) Examination: Yes Med jt line tenderness, No Lat jt line tenderness, Yes Pain with flexion, Yes Pain with extention, Yes Consuelo's Test, No TTP Patellar tendon, No TTP Pes Anserine and No Illiotibial band tenderness Stability: NML: Valgus 30 and NML: Varus 30 KNEE: Upon inspection of the right knee there is no evident swelling, ecchymosis, erythema or open wounds. No signs of infection. She has decreased AROM of her right knee. Pain with AROM of the knee. She has 94 degrees of flexion which also causes pain, but not as much as extension. Her MCL and LCL seem to be intact. Positive medial Consuelo. Positive thessalys. Palpable pedal pulses. Sensation intact to light touch. No effusion Supplemental Info 07/24/2021 MRI right knee: There are very small vertical tears of the posterior horn of the medial meniscus. There is arthrosis of the medial femorotibial compartment with partial thickness chondral loss of the medial femoral condyle. There is a radial tear of the posterior horn of the lateral meniscus. There is arthrosis of the lateral femorotibial compartment with partial-thickness chondral loss at the posterior aspect. Anterior cruciate ligament cyst. Popliteal cyst measuring approximately 5.8 cm in length. 07/10/2021 x-ray right knee: Mild degenerative arthrosis of the medial femorotibial compartment. Small joint effusion. 01/24/2021 x-ray right knee: shows evidence of lateral femoral-tibial compartment narrowing. No major osteophytic growth. Coding Level of Care Code Off vis,est,level 3 Diagnoses Osteoarthritis of right knee M17.11 Osteoarthritis type: primary Degenerative tear of meniscus of right knee M23.306 Assessment and Plan Assessment and Plan (1) Osteoarthritis of right knee: Status: Acute Qualifiers: Osteoarthritis type: primary Qualified Code(s): M17.11 - Unilateral primary osteoarthritis, right knee Plan - Sofia ROSALES PA: Personally reviewed patients MRI of the right knee. Educated that she does have a radial tear of the lateral meniscus and small medial meniscal tear. There is some cartilage wear noted on MRI. Treatment options are do nothing, PT, bracing, injections or right knee arthroscopy. Discussed she is worried that the injections have not helped her in the past and is worried she will not be able to do her job or get hurt due to the instability she feels. She would like to proceed with a right knee arthroscopy. Educated her that her medial side tears are small and her pain may possibly coming from arthritis. If that is the case, discussed that the knee arthroscopy would not help because it will not be able to replace cartilage. She is aware and understands that the results of the right knee arthroscopy may not be the same as she had with her left knee arthroscopy and she would like to proceed anyway. Educated her that her risk of furthering her existing arthritis. Reviewed the pre-operative plans with the patient. Risks and benefits of the procedure were fully explained, including but not limited to infection, neurovascular injury, continued pain, arthritis, stiffness, need for further surgery, re-injury, DVT, PE, general risks of anesthesia, and loss of limb or life. The patient understands all the risks and does wish to proceed with written consent for right knee arthroscopy. Surgery is tentatively scheduled 08/15/21. Educated her about the risks of taking trazodone with pain medication and she understands. Follow up 2 weeks post op or sooner if pain, swelling, numbness or associated symptoms, or concerns develop. All questions answered. Patient in agreement of plan. (2) Degenerative tear of meniscus of right knee: Plan Details Goals & Barriers: Goals Decrease spasm and inflammation Improve ROM Improve ability to lift Barriers Posture 07/28/21 1004<Electronically signed by Sofia ROSALES>Date Sofia ROSALES I have re-examined the patient. There are no clinical changes since date of exam
--- NOTE | 2021-08-15 13:03 | OP.PCM_ITS ---
Report of Operation Date of Procedure: 08/15/21 Description of Surgical Findings:: Preop diagnosis: Right knee DJD mechanical knee pain Postoperative diagnosis: Radial tear body medial meniscus degenerative tearing body of lateral meniscus and posterior horn grade 4 chondral malacia trochlea grade 3-4 patella grade 3 medial and lateral compartment Procedure: Arthroscopic partial medial partial lateral meniscectomy chondroplasty Anesthesia: General Estimated blood loss: 5 mL Tourniquet time: 25 minutes 300 mmHg Complications: none Indication for procedure: 61-year-old female patient who is an ongoing medial sided knee pain and mechanical knee symptoms we did discuss arthroscopic surgery to attempt to alleviate her mechanical symptoms the patient did wish to proceed with an elective arthroscopic surgery to attempt to alleviate the symptoms. Risk benefits and alternatives of the procedure were reviewed including risk of bleeding infection nerve artery tissue damage need for further surgery continued pain and expected postoperative course. Procedure: The patient was met in the preoperative holding area. The operative extremity was identified by both patient and physician and family and marked. Patient was brought back to the operating room on a wheeled cart and transferred to the operating table in the supine position. Anesthesia was started. A well- padded tourniquet was placed on the operative extremity. A lower extremity leg marina was secured to the operative extremity. The contralateral extremity was well-padded and the end of the bed was flexed to 90 degrees. The patient was prepped and draped in the usual sterile fashion. A timeout was called to ensure the proper patient, procedure, and extremity were being contemplated. 0.5% Marcaine with epinephrine was injected into the planned incisional areas under the skin only. An Esmarch was used to exsanguinate the extremity and the tourniquet was inflated. An 11 blade scalpel was used to make a stab incision in the anterior lateral portal. The arthroscope was inserted into the intercondylar notch and inflow and outflow tubes were attached. Arthroscopic visualization began. The medial compartment was entered. An 18-gauge spinal needle was used to establish the placement for anterior medial portal. An 11 bl lonnie scalpel was used to make a stab incision. Blunt probe was inserted followed by a meniscal probe. There is no to be grade 3 cartilage wear throughout the medial compartment and upon probing there was a flipped radial tear of the body of the medial meniscus with use of a shaver and ArthroCare partial medial meniscectomy was performed the ACL was found to be intact. The lateral compartment was entered there is no to be degenerative radial tearing throughout the body and posterior horn of the lateral meniscus with use of the shaver minimal partial lateral meniscectomy was performed there was an area of grade 4 of the periphery of the lateral femoral condyle as well as the posterior lateral tibial plateau and fissuring of the medial tibial plateau using a shaver and ArthroCare wand partial lateral meniscectomy was performed the arthroscope was switched to the medial portal to complete the procedure. The medial and lateral gutters were inspected and were free of loose bodies. The patellofemoral joint was inspected grade 4 cartilage wear of the trochlea and grade 3 of the apex of the patella. There was good patellar tracking. The knee was thoroughly irrigated and drained. An intra-articular injection with 5 cc 0.5% Marcaine plain and 40 mg of Depo-Medrol was injected intra-articularly. The arthroscope was removed the portals were closed with 3-0 nylon arthroscopic stitches. Followed by Xeroform 4 x 4's ABDs web roll and an Eulogio wrap. The tourniquet was let down and the drapes were removed. All counts were correct. The patient was brought back to the PACU in stable condition.
--- NOTE | 2021-08-15 13:07 | PCM.DC ---
Discharge Instructions Activity Keep extremity elevated above heart level: Operative Extremity Dressing / Incision Call your doctor if you observe: Shortness of breath and Chest pain Additional Dressing/Incision Instructions:: Ice and elevate next 72 hours .keep dressing on clean and dry for 48 hours then may remove begin showering daily but do not submerge in tub or pool. After shower may apply Band-Aids . Encourage knee range of motion weightbearing as tolerated, use crutches until confident in knee then may discontinue. No strenuous activity. When not ambulating keep iced and elevated next 72 hours. Do not mix pain medication with recreational drugs or alcohol only take as prescribed can be addictive and abusive, call with any questions or concerns. Follow Up Care Please Follow Up With: Paulie Hernandez DO When: 2 weeks Test Results: Test results from this visit will be discussed in further detail at your follow-up appointment, if applicable. Discharge Plan Admission Attending Provider: Paulie Hernandez Primary Care Provider: Martine Maldonado Discharge Orders/Prescriptions Prescriptions: New oxycodone 5 mg tablet 5 - 10 mg PO Q4H PRN (Reason: pain) 5 Days Qty: 20 RF: 0 Discontinued trazodone 100 MG tablet 200 mg PO QHS RF: 0 No Action levothyroxine 112 mcg tablet 112 mcg PO DAILY Qty: 90 RF: 0 cholecalciferol (vitamin D3) 25 mcg (1,000 unit) capsule 25 mcg PO DAILY RF: 0 hydrochlorothiazide 25 mg tablet 25 mg PO DAILY Qty: 90 RF: 6 lisinopril 20 MG tablet 20 mg PO DAILY RF: 0 carbidopa-levodopa 1 TABLET tablet 2 tab PO QHS RF: 0 hydroxyzine HCl 25 MG tablet 25 mg PO QHS RF: 0 vitamin X89-dgnzp acid 500-400 mcg Tablet 1 tab PO DAILY RF: 0 Referrals / Follow Up: Martine Maldonado DO [Primary Care Provider] - Disposition Disposition (needs filled in before D/C Order can be placed): Home, Self Care
[2021-08-15 13:13] VITALS: BP 114/72; BP 93/65; PULSE 87; RESP 16; TEMP 36.2; O2SAT 92
[2021-08-15 13:30] VITALS: BP 114/72; BP 97/68; PULSE 75; RESP 16; O2SAT 92
[2021-08-15 13:45] VITALS: BP 101/75; BP 114/72; PULSE 69; RESP 16; O2SAT 95
[2021-08-15 14:00] VITALS: BP 101/75; BP 114/72; PULSE 64; RESP 16; TEMP 36.3; O2SAT 96
[2021-08-15] MEDS: Acetaminophen 500 MG Tablet PO (14:43)
[2021-08-15 14:45] VITALS: BP 114/72
== END 2021-08-15 14:55 | disposition home or self-care (01) ==
LOC: SDC 10:26 → AC 10:27
PROVIDERS: PCP Internal Medicine; Referring Provider Orthopaedic Surgery; Visit Provider Orthopaedic Surgery
PROC: (CPT 29870; principal; 2021-08-15 12:40)
DX: M23.251 Derangement of posterior horn of lateral meniscus due to old tear or injury, right knee (principal); M23.203 Derangement of unspecified medial meniscus due to old tear or injury, right knee; M17.11 Unilateral primary osteoarthritis, right knee; F41.9 Anxiety disorder, unspecified; I10 Essential (primary) hypertension; K21.9 Gastro-esophageal reflux disease without esophagitis; E66.9 Obesity, unspecified; G47.33 Obstructive sleep apnea (adult) (pediatric); I73.9 Peripheral vascular disease, unspecified; E03.9 Hypothyroidism, unspecified; Z68.32 Body mass index [BMI] 32.0-32.9, adult; Z79.899 Other long term (current) drug therapy
CPT/HCPCS: 01400; 29880; J7120; J2405

== ENCOUNTER 2021-09-05 14:30 | Outpatient (RCR) | payer OTHER, SELFPAY ==
--- NOTE | 2021-08-29 14:57 | HP.PTEVAL_ITS ---
Patient's Visit Information ROSALINDA GARCIA is a 61 year old F referred to Physical Therapy by BOBBY Reed with a diagnosis of RIGHT KNEE DJD,RIGHT KNEE ARTHROSCOPIC PARTIAL MEDIAL/LATERAL MENISECTOMY ,. Date of Evaluation: 08/29/21 Physical Therapist: Pilo Buchanan, PT, Cert MDT, OCS - Visit Plan Frequency: 2x /Week Duration: 4 Weeks Plan: PT INTERVETIONS AROM KNEE,FLEXABLITY HAMSTRINGS,STRENGTHENING QUADS/HAMS/HIP,FUNCTIONAL STENGTHENING ,NUSTEP/BIKE FOR ROM,AND MODALTIES - Subjective This 61 y/o female presents to physical therapy with right arthroscopic with partial medial and lateral meniscectomy chondroplasty on 08/15 at [facility] outpatient. Patient d/c DOS with crutches with patient only used for 2 days. Patient stated ~ stiffness 1 wk later. Patient major c/o is stiffness. Patient co pain > posterior than anterior. Seen DR hernández. Patient has tried some ex's on own . Patient unable to kneel or squatting and difficulty with stairs one step at time. No meds. Ice at home. Patient sleeping okay at home. Patient condition post surgery affects QOL and function with ADL's/HOUSWORK tasks. Tentative RTW Oct 03. Patient had h/o right arthroscopic left Dec 16. SOCIAL: . VOCATION: [employer] - Pain Right Knee Pain Intensity (Out of 10): 5 Pain Intensity Range: 10 - Objective POSTURE: mild forward posture knee flexed. GAIT: antalgic gait right knee flexed slow [place] with decrease swing phase. BALANCE: good-. AROM: 3-90 degrees supine knee flexion. QUAD ATROPHIED. MMT: QUADS/HAM, 3+/5 ,HIP FLEXION 3+/5,HIP ABD 3+/5. JOINT LINE: 40 CM2 - Balance/Special Test Scores Lower Extremity Functional Score: 24 - Goals Goal 1:: I with HEP for ROM /strengthening knee Goal Time Frame: 4-6 Weeks Goal 2:: Patient to normalize gait community distance Goal Time Frame: 4-6 Weeks Goal 3:: Patient increase AROM knee supine flexion 0-125 degrees to improve function and stairs Goal Time Frame: 4-6 Weeks Goal 4:: Patient to increase strength quads/hams 4/5 to improve function Goal Time Frame: 4-6 Weeks Goal 5:: Patient to increase LFES score by 5-10 pints to improve gait Goal Time Frame: 4-6 Weeks - Rehabilitation Potential Physical Therapy Diagnosis: CONT.DIAGNOSIS : CHONDROPLASTY. Patient has increase pain ,edema ,decrease ROM and strength impairs gait and function following surgery thus will benefit from skilled PT Rehabilitation Potential: Good - Anticipated Interventions Patient/Client Instruction: Educate patient on: Condition, Plan of Care For the Purpose of:: To decrease pain, To increase ROM, To improve muscle performance and motor function, To improve ability of physical actions for home/community/work/leisure, To improve gait and locomotor functions, To improve health of tissue, To decrease soft tissue restriction, To increase flexibility/ROM, To improve balance Therapeutic Exercise to Include: Strength training, Balance training, Flexibilty training, Gait and locomotor training, Passive ROM, Active ROM Comment: quads/hams/hip For the Purpose of:: To decrease pain, To increase ROM, To improve health of tissue, To decrease soft tissue restriction TENS: Yes IF ES: Yes Cryotherapy (ice pack, ice massage): Yes Ultrasound (thermal/non thermal): Yes For the Purpose of:: To increase ROM, To improve nutrient delivery to tissue, To increase oxygenation perfusion, To improve health of tissue, To decrease soft tissue restriction Thank you for the opportunity to evaluate your patient. For Medicare and Medicare HMO plans, please review the plan of care and approve it. It will need to be FAXED BACK to us at [phone] for Medicare purposes. For Medicare only, by signing this I certify the plan of care. Please let me know if there are questions or concerns regarding this plan of care. Physician Signature: Date:
--- NOTE | 2021-11-07 13:41 | HP.PT.NRP ---
ROSALINDA GARCIA was seen in my office for initial evaluation on 08/29/21. The following Plan of Care was established for this patient: Initial Frequency: 2x /Week Initial Duration: 4 Weeks Patient/Client Instruction: Educate patient on: Condition, Plan of Care For the Purpose of:: To decrease pain, To increase ROM, To improve muscle performance and motor function, To improve ability of physical actions for home/community/work/leisure, To improve gait and locomotor functions, To improve health of tissue, To decrease soft tissue restriction, To increase flexibility/ROM, To improve balance Therapeutic Exercise to Include: Strength training, Balance training, Flexibilty training, Gait and locomotor training, Passive ROM, Active ROM For the Purpose of:: To decrease pain, To increase ROM, To improve health of tissue, To decrease soft tissue restriction TENS: Yes IF ES: Yes Cryotherapy (ice pack, ice massage): Yes Ultrasound (thermal/non thermal): Yes For the Purpose of:: To increase ROM, To improve nutrient delivery to tissue, To increase oxygenation perfusion, To improve health of tissue, To decrease soft tissue restriction This patient was last seen in our office . Pertinent comments regarding their Physical therapy will appear below: Patient was seen for right knee DJD and arthroscopic meniscectomy focusing on ROM, strength and flexibility doing well after 3 visits thus is d/c At this point I will be discontinuing this patient from physical therapy. I would be happy to see this patient again in the future if found appropriate by the physician. Thank you! Pilo Buchanan, PT, Cert MDT, OCS Balance/Gait/Functional tests - Balance/Special Test Scores Lower Extremity Functional Score: 65
== END 2021-09-05 19:00 | disposition home or self-care (01) ==
LOC: PT 14:30
PROVIDERS: PCP Internal Medicine
DX: Z47.89 Encounter for other orthopedic aftercare (principal); M17.11 Unilateral primary osteoarthritis, right knee
CPT/HCPCS: 97110; 97162

== ENCOUNTER → 2021-10-07 09:10 | Outpatient (CLI) | payer OTHER, SELFPAY ==
[2021-10-07 09:15] LABS: Bacteria 0 SEEN /hpf (None Seen); Mucous, Urine 0 SEEN /hpf (<or=2+)
[2021-10-07 09:31] LABS: Absolute Neutrophil Count 2.6 X10^3/uL (2.0-7.7); Basophil# 0.06 X10^3/uL; Basophil% 1.1 % (0-1); Eosinophil# 0.15 X10^3/uL; Eosinophils% 2.7 % (0-5); Hemoglobin 13.8 g/dL (12.0-15.0); Lymphocyte % 37.3 % (19-41); Mean Corp Hgb Conc 32.9 g/dL (32-36); Mean Corpuscular Hgb 28.2 pg (27.0-32.0); Mean Corpuscular Volume 85.7 fL (81-99); Mean Platelet Vol. 9.3 fl (6.2-12.0); Monocyte# 0.72 X10^3/uL; Monocyte% 12.8 % (0-10); NRBC Flagged by Analyzer 0 % (0-5); Neutrophil # 2.58 X10^3/uL (2.7-7.7); Neutrophil % 45.7 % (47-70); Platelet Count 304 K/mm3 (150-450); RBC Distribution Width CV 13.4 % (11.6-14.6); RBC Distribution Width SD 42.1 fl (35.1-43.9); White Blood Count 5.6 K/mm3 (4.4-11.0)
[2021-10-07 09:32] LABS: Color, Urine Yellow (Yellow); Glucose, Dipstick Normal (Normal); Ketone-Dipstick 5 mg/dl (Negative); Leukocyte Esterase-Dipstick 25 /ul (Negative); Nitrite-Dipstick Negative (Negative); Occult Blood-Urine 10 /ul (Negative); Protein-Dipstick 30 mg/dl (Negative); Specific Gravity, Urine 1.025 (1.002-1.030); Urine Bilirubin Dipstick Negative (Negative); Urine Clarity Clear (Clear); Urine Urobilinogen 1 mg/dl (Normal)
[2021-10-07 09:39] LABS: Red Blood Cells-Urine 0-5 SEEN /hpf (0-5); Squamous Epithelial Cells - UA 0-5 SEEN /hpf (5-10); White Blood Cells 0-5 SEEN /hpf (0-5)
[2021-10-07 09:54] LABS: Microalbumin,Random Urine 17.2 mg/L (NO RANGE EST.)
[2021-10-07 10:32] LABS: ALB/GLOB Ratio 1.1 RATIO (0.9-2.4); AST(SGOT) 17 U/L (15-37); Alanine Aminotransfer ALT/SGPT 20 U/L (13-56); Albumin, Serum 3.6 g/dL (3.2-5.0); Alkaline Phosphatase 50 U/L (45-117); Anion Gap 4 (5-15); BUN 13 mg/dL (7-18); BUN/Creat Ratio 15.5 RATIO (10-20); Calcium,Total 9.1 mg/dL (8.5-10.1); Chloride 107 mmol/L (98-107); Creatinine, Serum 0.84 mg/dL (0.55-1.02); EST Glomerular Filtration Rate 73 mL/min (>60); Est Glom Filt Rate - Afr Amer 88 mL/min (>60); Globulin 3.2 g/dL (2.2-4.2); Glucose 103 mg/dL (74-106); Potassium 3.7 mmol/L (3.5-5.1); Protein, Total 6.8 g/dL (6.4-8.2); Sodium Level 141 mmol/L (136-145); Thyroid Stim Hormone (TSH) 1.36 uIU/mL (0.358-3.74)
[2021-10-09 09:11] LABS: Vitamin B12 631 pg/mL (211-911)
== END ==
PROVIDERS: PCP Internal Medicine; Visit Provider Internal Medicine
DX: I10 Essential (primary) hypertension (principal); E03.1 Congenital hypothyroidism without goiter; E53.8 Deficiency of other specified B group vitamins
CPT/HCPCS: 36415; 80053; 81001; 82043; 82570; 82607; 84443; 85025

== ENCOUNTER 2022-01-19 14:12 | Outpatient (CLI) | payer BC, SELFPAY ==
[2022-01-30 16:08] LABS: HPV APTIMA, High Risk Negative (Negative)
== END 2022-01-19 23:59 | disposition home or self-care (01) ==
LOC: LABSPEC 14:13
PROVIDERS: PCP Internal Medicine; Visit Provider Student in an Organized Health Care Education/Training Program
DX: Z12.4 Encounter for screening for malignant neoplasm of cervix (principal)
CPT/HCPCS: 87624; 88175; G0145

== ENCOUNTER 2022-02-01 15:52 | Outpatient (CLI) | payer BC, SELFPAY ==
--- NOTE | 2022-02-01 15:55 | BI_ITS ---
MAMMOGRAPHY - BILATERAL SCREENING REASON FOR EXAM: Female, 62 years old. Routine annual screening examination. PERTINENT HISTORY: Sister with breast cancer. Mother with breast cancer. Grandmother with breast cancer. TECHNIQUE: Digital bilateral breast lety (3D mammographic acquisition) in the CC and MLO projections. 2-D mediolateral oblique (MLO) and craniocaudad (CC) views of both breasts were obtained. CAD: Full Field Digital Mammography with Computer Added Detection was performed. COMPARISON: Comparison is made with prior study dated 12/22/2020 and 09/30/2019. FINDINGS: Breast Composition: The breasts are almost entirely fatty. There are no dominant masses or suspicious calcifications. Stable benign-appearing bilateral axillary lymph nodes. No other significant abnormalities are identified. There has been no significant change since the prior study. BI/SCRN MAMM (CAD)W/LETY BILAT IMPRESSION: Stable bilateral screening mammogram. Yearly follow-up mammogram recommended. (A) ASSESSMENT CATEGORY: BIRADS Category 2: Benign. A letter regarding these results will be sent to the patient by the facility within 30 days. Approximately 10% of breast cancers are not detected by mammography. A normal mammogram should not delay biopsy of a clinically suspicious abnormality. [id number] Electronically Signed: Nestor Bunn MD at 7:55 EDT ,
--- NOTE | 2022-02-01 16:06 | BD_ITS ---
STUDY: DUAL ENERGY X-RAY ABSORPTIOMETRY / DXA REASON FOR EXAM: Female, 62 years old. M810. The patient is postmenopausal. TECHNIQUE: Bone Mineral Density (BMD) measurements of lumbar spine and bilateral hips were obtained. COMPARISON: Comparison is made with prior study 04/24/2016. FINDINGS: Lumbar Spine (L1-L4): g/cm2 (1.050) / T-score (0.0) / Z-score (1.7) Findings are suggestive of normal bone density with a low fracture risk. Left Femur Total: g/cm2 (1.069) / T-score (1.0) / Z-score (2.2) Left Femoral Neck: g/cm2 (0.866) / T-score (0.2) / Z-score (1.6) Right Femur Total: g/cm2 (1.003) / T-score (0.5) / Z-score (1.7) Right Femoral Neck: g/cm2 (0.838) / T-score (-0.1) / Z-score (1.4) The T-Scores on the most recent prior examination were: Lumbar Spine (L1-L4): There has been worsening of bone density since the previous examination. Left Femur Total: which represents a worsening of 3.6%. Right Femur Total: which represents a worsening of 9.4%. BD/Dexa Bone Density Study IMPRESSION: The patient is considered normal as outlined below according to World Jon Organization (WHO) criteria with a low fracture risk. There has been worsening of bone density since the previous examination. Reference Information: The T-score is the number of standard deviations above or below the standard which is normal for young adults at their peak bone mineral density. The World Health Organization (WHO) interprets the T-scores as follows: Above -1 Normal bone density Between -1 and -2.5 Osteopenia Equal to / or below -2.5 Osteoporosis As a practical clinical guideline, osteopenia may be graded as follows: Mild -1 through -1.5 Moderate -1.6 through -2.0 Severe -2.1 through -2.4 The Z-score is the number of standard deviations above or below age-matched controls. A Z-score of less than -1.5 would be considered abnormal. References: 1. NIH Osteoporosis and Related Bone Diseases www osteo.org 2. International Society for Clinical Densitometry www iscd.org 3. National Osteoporosis Foundation www nof.org Electronically Signed: Nestor Bunn MD at 14:43 EDT ,
== END 2022-02-01 23:59 | disposition home or self-care (01) ==
LOC: OPBD 15:52
PROVIDERS: PCP Internal Medicine; Referring Provider Student in an Organized Health Care Education/Training Program; Visit Provider Student in an Organized Health Care Education/Training Program
DX: Z12.31 Encounter for screening mammogram for malignant neoplasm of breast (principal); Z80.3 Family history of malignant neoplasm of breast; M81.0 Age-related osteoporosis without current pathological fracture
CPT/HCPCS: 77063; 77067; 77080

== ENCOUNTER → 2022-03-01 | Outpatient (CLI) | payer BC, SELFPAY ==
--- NOTE | 2022-03-01 15:03 | RAD_ITS ---
STUDY: X-RAY - LEFT ANKLE REASON FOR EXAM: Female, 62 years old. ACUTE PAIN TECHNIQUE: 3 view(s) of the ankle. COMPARISON: None. FINDINGS: Normal visualized distal tibia and fibula. Normal medial and lateral malleoli. Normal tibiotalar articulation and ankle mortise. Normal visualized talus and calcaneus. The visualized subtalar, talonavicular, calcaneocuboid and tarsal articulations are normal. The soft tissue structures are unremarkable. RAD/Ankle min 3 Views IMPRESSION: Normal x-ray examination of the ankle. Electronically Signed: Ousmane Wise MD at 1:04 EDT ,
== END | disposition home or self-care (01) ==
LOC: MTRAD 15:02
PROVIDERS: PCP Internal Medicine; Referring Provider Internal Medicine; Visit Provider Internal Medicine
DX: M25.572 Pain in left ankle and joints of left foot (principal)
CPT/HCPCS: 73610

== ENCOUNTER → 2022-04-14 | Outpatient (CLI) | payer BC, SELFPAY ==
[2022-04-14 09:25] LABS: Bacteria 0 SEEN /hpf (None Seen); Mucous, Urine 0 SEEN /hpf (<or=2+); Red Blood Cells-Urine 0 SEEN /hpf (0-5)
[2022-04-14 10:19] LABS: Absolute Lymphocyte Count 2.07 X10^3/uL (0.83-4.51); Absolute Neutrophil Count 3.5 X10^3/uL (2.0-7.7); Basophil# 0.04 X10^3/uL; Basophil% 0.6 % (0-1); Eosinophils% 1.6 % (0-5); Hematocrit 42.5 % (37-47); Hemoglobin 13.5 g/dL (12.0-15.0); Lymphocyte # 2.07 X10^3/ul (0.83-4.51); Lymphocyte % 32.2 % (19-41); Mean Corp Hgb Conc 31.8 g/dL (32-36); Mean Corpuscular Hgb 28.2 pg (27.0-32.0); Mean Corpuscular Volume 88.9 fL (81-99); Monocyte# 0.71 X10^3/uL; NRBC Flagged by Analyzer 0 % (0-5); Neutrophil # 3.47 X10^3/uL (2.7-7.7); Platelet Count 290 K/mm3 (150-450); RBC Distribution Width CV 13.5 % (11.6-14.6); RBC Distribution Width SD 44.3 fl (35.1-43.9); Red Blood Count 4.78 M/mm3 (4.2-5.4); White Blood Count 6.4 K/mm3 (4.4-11.0)
[2022-04-14 10:25] LABS: Color, Urine Yellow (Yellow); Glucose, Dipstick Normal (Normal); Ketone-Dipstick 5 mg/dl (Negative); Leukocyte Esterase-Dipstick 100 /ul (Negative); Nitrite-Dipstick Negative (Negative); Occult Blood-Urine Negative /ul (Negative); Protein-Dipstick 15 mg/dl (Negative); Urine Bilirubin Dipstick Negative (Negative); Urine Clarity Sl. Cloudy (Clear); Urine Urobilinogen 1 mg/dl (Normal)
[2022-04-14 10:32] LABS: Squamous Epithelial Cells - UA 0-5 SEEN /hpf (5-10); White Blood Cells 5-10 SEEN /hpf (0-5)
[2022-04-14 10:45] LABS: ALB/GLOB Ratio 1.1 RATIO (0.9-2.4); AST(SGOT) 19 U/L (15-37); Alanine Aminotransfer ALT/SGPT 20 U/L (13-56); Albumin, Serum 3.6 g/dL (3.2-5.0); Alkaline Phosphatase 45 U/L (45-117); Anion Gap 6 (5-15); BUN 17 mg/dL (7-18); BUN/Creat Ratio 21.2 RATIO (10-20); Calcium,Total 8.7 mg/dL (8.5-10.1); Chloride 105 mmol/L (98-107); Cholesterol 185 mg/dL (200); EST Glomerular Filtration Rate 77 mL/min (>60); Est Glom Filt Rate - Afr Amer 93 mL/min (>60); Globulin 3.2 g/dL (2.2-4.2); Glucose 109 mg/dL (74-106); High Density Lipoprotein 44 mg/dL; Potassium 3.7 mmol/L (3.5-5.1); Protein, Total 6.8 g/dL (6.4-8.2); Sodium Level 140 mmol/L (136-145); Triglycerides 83 mg/dL; Very Low Density Lipoprotein 17 mg/dL (5-40)
[2022-04-14 10:47] LABS: Microalbumin,Random Urine 21.6 mg/L (NO RANGE EST.); Microalbumin:Creatinine Ratio 10.6 mg/g CRE (<30 mg/g CRE)
== END | disposition home or self-care (01) ==
LOC: LAB 09:17
PROVIDERS: PCP Internal Medicine; Referring Provider Internal Medicine; Visit Provider Internal Medicine
DX: E03.9 Hypothyroidism, unspecified (principal); I10 Essential (primary) hypertension
CPT/HCPCS: 36415; 80053; 80061; 81001; 82043; 82570; 84443; 85025

== ENCOUNTER → 2022-08-03 | Outpatient (CLI) | payer BC, SELFPAY ==
[2022-08-03 10:20] LABS: Bacteria 0 SEEN /hpf (None Seen); Mucous, Urine 0 SEEN /hpf (<or=2+); Red Blood Cells-Urine 0 SEEN /hpf (0-5); Squamous Epithelial Cells - UA 0 SEEN /hpf (5-10); White Blood Cells 0 SEEN /hpf (0-5)
[2022-08-03 10:53] LABS: Absolute Lymphocyte Count 2.25 X10^3/uL (0.83-4.51); Absolute Neutrophil Count 3.3 X10^3/uL (2.0-7.7); Basophil# 0.04 X10^3/uL; Basophil% 0.6 % (0-1); Eosinophil# 0.22 X10^3/uL; Eosinophils% 3.4 % (0-5); Hematocrit 44.1 % (37-47); Hemoglobin 14.4 g/dL (12.0-15.0); Lymphocyte # 2.25 X10^3/ul (0.83-4.51); Lymphocyte % 34.7 % (19-41); Mean Corp Hgb Conc 32.7 g/dL (32-36); Mean Corpuscular Hgb 28.4 pg (27.0-32.0); Mean Platelet Vol. 9.7 fl (6.2-12.0); Monocyte# 0.68 X10^3/uL; Monocyte% 10.5 % (0-10); NRBC Flagged by Analyzer 0 % (0-5); Neutrophil # 3.26 X10^3/uL (2.7-7.7); Neutrophil % 50.3 % (47-70); Platelet Count 330 K/mm3 (150-450); RBC Distribution Width CV 12.7 % (11.6-14.6); RBC Distribution Width SD 40.2 fl (35.1-43.9); Red Blood Count 5.07 M/mm3 (4.2-5.4); White Blood Count 6.5 K/mm3 (4.4-11.0)
[2022-08-03 11:06] LABS: Color, Urine Yellow (Yellow); Glucose, Dipstick Normal (Normal); Ketone-Dipstick Negative (Negative); Leukocyte Esterase-Dipstick Negative /ul (Negative); Nitrite-Dipstick Negative (Negative); Occult Blood-Urine Negative /ul (Negative); Protein-Dipstick Negative (Negative); Urine Bilirubin Dipstick Negative (Negative); Urine Clarity Clear (Clear); Urine Urobilinogen Normal (Normal)
[2022-08-03 11:31] LABS: Vitamin B12 773 pg/mL (211-911)
[2022-08-03 11:45] LABS: ALB/GLOB Ratio 1.1 RATIO (0.9-2.4); AST(SGOT) 20 U/L (15-37); Alanine Aminotransfer ALT/SGPT 27 U/L (13-56); Albumin, Serum 3.8 g/dL (3.2-5.0); Alkaline Phosphatase 47 U/L (45-117); Anion Gap 6 (5-15); BUN 15 mg/dL (7-18); BUN/Creat Ratio 19.3 RATIO (10-20); Chloride 104 mmol/L (98-107); Cholesterol 192 mg/dL (200); Creatinine, Serum 0.78 mg/dL (0.55-1.02); EST Glomerular Filtration Rate 79 mL/min (>60); Est Glom Filt Rate - Afr Amer 96 mL/min (>60); Globulin 3.4 g/dL (2.2-4.2); Glucose 113 mg/dL (74-106); High Density Lipoprotein 49 mg/dL; Potassium 3.6 mmol/L (3.5-5.1); Protein, Total 7.2 g/dL (6.4-8.2); Sodium Level 140 mmol/L (136-145); Triglycerides 70 mg/dL; Very Low Density Lipoprotein 14 mg/dL (5-40)
[2022-08-03 12:01] LABS: Microalbumin,Random Urine < 5.0 mg/L (NO RANGE EST.)
== END | disposition home or self-care (01) ==
LOC: LAB 10:17
PROVIDERS: PCP Internal Medicine; Visit Provider Internal Medicine
DX: E78.5 Hyperlipidemia, unspecified (principal); E11.9 Type 2 diabetes mellitus without complications; E03.9 Hypothyroidism, unspecified; E53.8 Deficiency of other specified B group vitamins
CPT/HCPCS: 36415; 80053; 80061; 81001; 82043; 82570; 82607; 84443; 85025

== ENCOUNTER → 2023-02-23 | Outpatient (CLI) | payer BC, SELFPAY ==
[2023-02-23 09:26] LABS: Erythrocyte Sedimentation Rate 1 mm/hr (0-30)
[2023-02-23 09:27] LABS: Absolute Lymphocyte Count 2.03 X10^3/uL (0.83-4.51); Absolute Neutrophil Count 3.1 X10^3/uL (2.0-7.7); Basophil# 0.05 X10^3/uL; Basophil% 0.8 % (0-1); Eosinophil# 0.24 X10^3/uL; Eosinophils% 3.9 % (0-5); Hemoglobin 13.4 g/dL (12.0-15.0); Lymphocyte # 2.03 X10^3/ul (0.83-4.51); Lymphocyte % 33.1 % (19-41); Mean Corp Hgb Conc 31.9 g/dL (32-36); Mean Corpuscular Hgb 27.6 pg (27.0-32.0); Mean Corpuscular Volume 86.4 fL (81-99); Mean Platelet Vol. 9.8 fl (6.2-12.0); Monocyte# 0.71 X10^3/uL; Monocyte% 11.6 % (0-10); NRBC Flagged by Analyzer 0 % (0-5); Neutrophil # 3.09 X10^3/uL (2.7-7.7); Neutrophil % 50.4 % (47-70); Platelet Count 322 K/mm3 (150-450); RBC Distribution Width CV 13.9 % (11.6-14.6); RBC Distribution Width SD 43.9 fl (35.1-43.9); Red Blood Count 4.86 M/mm3 (4.2-5.4); White Blood Count 6.1 K/mm3 (4.4-11.0)
== END | disposition home or self-care (01) ==
LOC: LAB 08:31
PROVIDERS: PCP Internal Medicine; Referring Provider Physician Assistant Surgical; Visit Provider Physician Assistant Surgical
DX: Z96.651 Presence of right artificial knee joint (principal)
CPT/HCPCS: 36415; 85025; 85652; 86140

== ENCOUNTER → 2023-03-01 | Outpatient (CLI) | payer BC, SELFPAY ==
[2023-03-01 11:08] LABS: Absolute Lymphocyte Count 1.95 X10^3/uL (0.83-4.51); Absolute Neutrophil Count 2.5 X10^3/uL (2.0-7.7); Basophil# 0.05 X10^3/uL; Basophil% 0.9 % (0-1); Eosinophil# 0.18 X10^3/uL; Eosinophils% 3.3 % (0-5); Hematocrit 42.6 % (37-47); Hemoglobin 13.7 g/dL (12.0-15.0); Lymphocyte # 1.95 X10^3/ul (0.83-4.51); Lymphocyte % 36.2 % (19-41); Mean Corp Hgb Conc 32.2 g/dL (32-36); Mean Corpuscular Hgb 27.5 pg (27.0-32.0); Mean Corpuscular Volume 85.5 fL (81-99); Mean Platelet Vol. 9.5 fl (6.2-12.0); Monocyte# 0.64 X10^3/uL; Monocyte% 11.9 % (0-10); NRBC Flagged by Analyzer 0 % (0-5); Neutrophil # 2.54 X10^3/uL (2.7-7.7); Neutrophil % 47.3 % (47-70); Platelet Count 291 K/mm3 (150-450); RBC Distribution Width CV 13.9 % (11.6-14.6); Red Blood Count 4.98 M/mm3 (4.2-5.4); White Blood Count 5.4 K/mm3 (4.4-11.0)
[2023-03-01 11:41] LABS: Microalbumin,Random Urine 9.6 mg/L (NO RANGE EST.); Microalbumin:Creatinine Ratio 6.6 mg/g CRE (<30 mg/g CRE)
[2023-03-01 11:44] LABS: ALB/GLOB Ratio 1.3 RATIO (0.9-2.4); AST(SGOT) 21 U/L (15-37); Alanine Aminotransfer ALT/SGPT 22 U/L (13-56); Albumin, Serum 3.8 g/dL (3.2-5.0); Alkaline Phosphatase 54 U/L (45-117); Anion Gap 5 (5-15); BUN 18 mg/dL (7-18); BUN/Creat Ratio 23.3 RATIO (10-20); Calcium,Total 8.9 mg/dL (8.5-10.1); Chloride 105 mmol/L (98-107); Cholesterol 181 mg/dL (200); Creatinine, Serum 0.77 mg/dL (0.55-1.02); EST Glomerular Filtration Rate 80 mL/min (>60); Est Glom Filt Rate - Afr Amer 96 mL/min (>60); Glucose 125 mg/dL (74-106); High Density Lipoprotein 45 mg/dL; Potassium 3.7 mmol/L (3.5-5.1); Protein, Total 6.8 g/dL (6.4-8.2); Sodium Level 140 mmol/L (136-145); Thyroid Stim Hormone (TSH) 2.12 uIU/mL (0.358-3.74); Triglycerides 74 mg/dL; Very Low Density Lipoprotein 15 mg/dL (5-40)
[2023-03-01 12:06] LABS: Hemoglobin A1c 6.7 % (3.8-5.6)
== END | disposition home or self-care (01) ==
LOC: LAB 10:08
PROVIDERS: PCP Internal Medicine; Referring Provider Internal Medicine; Visit Provider Internal Medicine
DX: E78.5 Hyperlipidemia, unspecified (principal); E11.9 Type 2 diabetes mellitus without complications; E03.9 Hypothyroidism, unspecified; I10 Essential (primary) hypertension
CPT/HCPCS: 36415; 80053; 80061; 82043; 82570; 83036; 84443; 85025

== ENCOUNTER → 2023-03-15 | Outpatient (CLI) | payer BC, SELFPAY ==
--- NOTE | 2023-03-15 10:21 | BI_ITS ---
MAMMOGRAPHY - BILATERAL SCREENING REASON FOR EXAM: Female, 63 years old. Routine annual screening examination. PERTINENT HISTORY: Sister with breast cancer. Mother with breast cancer. Grandmother with breast cancer. TECHNIQUE: Digital bilateral breast lety (3D mammographic acquisition) in the CC and MLO projections. 2-D mediolateral oblique (MLO) and craniocaudad (CC) views of both breasts were obtained. CAD: Full Field Digital Mammography with Computer Added Detection was performed. COMPARISON: Comparison is made with prior study dated February 01, 2022 and December 22, 2020. FINDINGS: Breast Composition: The breasts are almost entirely fatty. There are no dominant masses or suspicious calcifications. Stable benign-appearing bilateral axillary lymph nodes. No other significant abnormalities are identified. There has been no significant change since the prior study. BI/SCRN MAMM (CAD)W/LETY BILAT IMPRESSION: Stable bilateral screening mammogram. Yearly follow-up mammogram recommended. (A) ASSESSMENT CATEGORY: BIRADS Category 2: Benign. A letter regarding these results will be sent to the patient by the facility within 30 days. Approximately 10% of breast cancers are not detected by mammography. A normal mammogram should not delay biopsy of a clinically suspicious abnormality. [id number] Electronically Signed: Nestor Bunn MD at 12:39 EDT ,
== END | disposition home or self-care (01) ==
LOC: OPBI 10:21
PROVIDERS: PCP Internal Medicine; Referring Provider Internal Medicine; Visit Provider Internal Medicine
DX: Z12.31 Encounter for screening mammogram for malignant neoplasm of breast (principal)
CPT/HCPCS: 77063; 77067

== ENCOUNTER → 2023-10-12 | Outpatient (CLI) | payer BC, SELFPAY ==
[2023-10-12 08:36] LABS: Red Blood Cells-Urine 0 SEEN /hpf (0-5)
[2023-10-12 09:31] LABS: Absolute Lymphocyte Count 2.45 X10^3/uL (0.83-4.51); Absolute Neutrophil Count 2.8 X10^3/uL (2.0-7.7); Basophil# 0.03 X10^3/uL; Basophil% 0.5 % (0-1); Eosinophil# 0.13 X10^3/uL; Eosinophils% 2.2 % (0-5); Hematocrit 40.1 % (37-47); Hemoglobin 13.3 g/dL (12.0-15.0); Lymphocyte # 2.45 X10^3/ul (0.83-4.51); Lymphocyte % 41.5 % (19-41); Mean Corp Hgb Conc 33.2 g/dL (32-36); Mean Corpuscular Hgb 28.2 pg (27.0-32.0); Mean Corpuscular Volume 85.1 fL (81-99); Mean Platelet Vol. 9.6 fl (6.2-12.0); Monocyte% 8.5 % (0-10); NRBC Flagged by Analyzer 0 % (0-5); Neutrophil # 2.77 X10^3/uL (2.7-7.7); Platelet Count 274 K/mm3 (150-450); RBC Distribution Width CV 13.4 % (11.6-14.6); RBC Distribution Width SD 42.3 fl (35.1-43.9); Red Blood Count 4.71 M/mm3 (4.2-5.4); White Blood Count 5.9 K/mm3 (4.4-11.0)
[2023-10-12 09:48] LABS: Color, Urine Yellow (Yellow); Glucose, Dipstick Normal (Normal); Ketone-Dipstick 5 mg/dl (Negative); Leukocyte Esterase-Dipstick 25 /ul (Negative); Nitrite-Dipstick Negative (Negative); Occult Blood-Urine Negative /ul (Negative); Protein-Dipstick 30 mg/dl (Negative); Urine Bilirubin Dipstick Negative (Negative); Urine Clarity Clear (Clear); Urine Urobilinogen 4 mg/dl (Normal); Urine pH 6.5 (5.0 - 8.0)
[2023-10-12 09:58] LABS: ALB/GLOB Ratio 1.1 RATIO (0.9-2.4); AST(SGOT) 22 U/L (15-37); Alanine Aminotransfer ALT/SGPT 18 U/L (13-56); Albumin, Serum 3.5 g/dL (3.2-5.0); Alkaline Phosphatase 51 U/L (45-117); Anion Gap 2 (5-15); BUN 17 mg/dL (7-18); BUN/Creat Ratio 21.5 RATIO (10-20); Calcium,Total 8.6 mg/dL (8.5-10.1); Chloride 103 mmol/L (98-107); Cholesterol 165 mg/dL (200); Creatinine, Serum 0.79 mg/dL (0.55-1.02); EST Glomerular Filtration Rate 77 mL/min (>60); Est Glom Filt Rate - Afr Amer 93 mL/min (>60); Globulin 3.2 g/dL (2.2-4.2); Glucose 108 mg/dL (74-106); High Density Lipoprotein 42 mg/dL; Potassium 3.5 mmol/L (3.5-5.1); Protein, Total 6.7 g/dL (6.4-8.2); Sodium Level 137 mmol/L (136-145); Triglycerides 55 mg/dL; Very Low Density Lipoprotein 11 mg/dL (5-40)
[2023-10-12 10:05] LABS: Bacteria 1+ /hpf (None Seen); Mucous, Urine 1+ /hpf (<or=2+); Squamous Epithelial Cells - UA 0-5 SEEN /hpf (5-10); White Blood Cells 0-5 SEEN /hpf (0-5)
[2023-10-12 10:07] LABS: Microalbumin,Random Urine 8.4 mg/L (NO RANGE EST.); Microalbumin:Creatinine Ratio 4.4 mg/g CRE (<30 mg/g CRE)
[2023-10-15 09:07] LABS: Vitamin B12 697 pg/mL (211-911)
== END | disposition home or self-care (01) ==
PROVIDERS: PCP Internal Medicine; Referring Provider Internal Medicine; Visit Provider Internal Medicine
DX: E03.9 Hypothyroidism, unspecified (principal); E11.9 Type 2 diabetes mellitus without complications; E53.8 Deficiency of other specified B group vitamins; E78.5 Hyperlipidemia, unspecified
CPT/HCPCS: 36415; 80053; 80061; 81001; 82043; 82570; 82607; 84443; 85025

== ENCOUNTER → 2024-01-01 | Outpatient (CLI) | payer BC, SELFPAY ==
[2024-01-01 11:44] LABS: AST(SGOT) 21 U/L (15-37); Alanine Aminotransfer ALT/SGPT 21 U/L (13-56); Albumin, Serum 3.6 g/dL (3.2-5.0); Alkaline Phosphatase 49 U/L (45-117); Bilirubin, Direct 0.16 mg/dL (0.00-0.30); Cholesterol 139 mg/dL (200); Globulin 3.5 g/dL (2.2-4.2); High Density Lipoprotein 50 mg/dL; Protein, Total 7.1 g/dL (6.4-8.2); Triglycerides 81 mg/dL; Very Low Density Lipoprotein 16 mg/dL (5-40)
== END | disposition home or self-care (01) ==
LOC: LAB 10:17
PROVIDERS: PCP Internal Medicine; Referring Provider Internal Medicine; Visit Provider Internal Medicine
DX: R79.89 Other specified abnormal findings of blood chemistry (principal); E78.5 Hyperlipidemia, unspecified
CPT/HCPCS: 36415; 80061; 80076; 84443

== ENCOUNTER → 2024-03-04 | Outpatient (CLI) | payer BC, SELFPAY ==
--- NOTE | 2024-03-04 10:19 | MRI_ITS ---
STUDY: MRI LEFT ANKLE WITHOUT CONTRAST REASON FOR EXAM: Female, 64 years old. Left ankle pain, osteoarthritis. TECHNIQUE: Standardized fat and water weighted pulse sequences were obtained in all 3 orthogonal planes. COMPARISON: Left ankle radiographs dated 03/01/2022. FINDINGS: There is marrow stress edema in the lateral talar process, anterolateral calcaneus, cuboid, and lateral cuneiform. Normal subcutis adipose space. Normal posterior tibialis tendon. Normal flexor digitorum longus tendon. Normal flexor hallucis longus tendon. Normal peroneus longus and brevis tendons. Normal tibialis anterior tendon. Normal extensor hallucis longus tendon. Normal extensor digitorum longus tendons. Normal Achilles tendon and teno-osseous insertion. Normal plantar fascia. There is a small plantar calcaneal spur. Normal intrinsic muscles of the rearfoot. Normal distal tibiofibular syndesmotic ligamentous complex. Normal lateral ligamentous complex. Normal subtalar ligaments and sinus tarsi. Normal deltoid ligamentous complex. Normal plantar calcaneonavicular (spring) ligament. Normal tibiotalar articulation. Normal talar dome. There is mild degenerative arthrosis at the dorsal aspects of the talonavicular and navicular-cuneiform joints. MRI/Lower Ext Joint Only (Routine) IMPRESSION: Marrow stress edema in the lateral talar process, anterolateral calcaneus, cuboid, and lateral cuneiform. Mild degenerative arthrosis at the dorsal aspects of the talonavicular and navicular-cuneiform joints. Small plantar calcaneal spur. Electronically Signed: Micha Steve MD at 12:59 EDT ,
== END | disposition home or self-care (01) ==
PROVIDERS: PCP Internal Medicine; Referring Provider Podiatrist; Visit Provider Podiatrist
DX: M19.072 Primary osteoarthritis, left ankle and foot (principal); M62.89 Other specified disorders of muscle; M79.672 Pain in left foot; M25.572 Pain in left ankle and joints of left foot; M21.42 Flat foot [pes planus] (acquired), left foot
CPT/HCPCS: 73721

== ENCOUNTER → 2024-04-16 | Outpatient (CLI) | payer BC, SELFPAY ==
[2024-04-16 11:20] LABS: Absolute Lymphocyte Count 1.71 X10^3/uL (0.83-4.51); Absolute Neutrophil Count 3.2 X10^3/uL (2.0-7.7); Basophil# 0.04 X10^3/uL; Basophil% 0.7 % (0-1); Eosinophils% 3.5 % (0-5); Hematocrit 42.8 % (37-47); Hemoglobin 13.9 g/dL (12.0-15.0); Lymphocyte # 1.71 X10^3/ul (0.83-4.51); Lymphocyte % 29.6 % (19-41); Mean Corp Hgb Conc 32.5 g/dL (32-36); Mean Corpuscular Hgb 27.7 pg (27.0-32.0); Mean Corpuscular Volume 85.4 fL (81-99); Mean Platelet Vol. 9.6 fl (6.2-12.0); Monocyte# 0.67 X10^3/uL; Monocyte% 11.6 % (0-10); NRBC Flagged by Analyzer 0 % (0-5); Neutrophil # 3.15 X10^3/uL (2.7-7.7); Neutrophil % 54.4 % (47-70); Platelet Count 299 K/mm3 (150-450); RBC Distribution Width CV 13.4 % (11.6-14.6); RBC Distribution Width SD 41.6 fl (35.1-43.9); Red Blood Count 5.01 M/mm3 (4.2-5.4); White Blood Count 5.8 K/mm3 (4.4-11.0)
[2024-04-16 11:31] LABS: Prothrombin Time (Protime)PT. 13.4 SECONDS (11.7-14.9)
[2024-04-16 11:51] LABS: ALB/GLOB Ratio 1.1 RATIO (0.9-2.4); AST(SGOT) 21 U/L (15-37); Alanine Aminotransfer ALT/SGPT 24 U/L (13-56); Albumin, Serum 3.9 g/dL (3.2-5.0); Alkaline Phosphatase 49 U/L (45-117); Anion Gap 3 (5-15); BUN 16 mg/dL (7-18); BUN/Creat Ratio 18.4 RATIO (10-20); Calcium,Total 9.3 mg/dL (8.5-10.1); Chloride 104 mmol/L (98-107); Creatinine, Serum 0.87 mg/dL (0.55-1.02); EST Glomerular Filtration Rate 69 mL/min (>60); Est Glom Filt Rate - Afr Amer 84 mL/min (>60); Globulin 3.4 g/dL (2.2-4.2); Glucose 116 mg/dL (74-106); Potassium 3.5 mmol/L (3.5-5.1); Protein, Total 7.3 g/dL (6.4-8.2); Sodium Level 141 mmol/L (136-145)
[2024-04-16 11:54] LABS: Hemoglobin A1c 6.2 % (3.8-5.6)
== END | disposition home or self-care (01) ==
LOC: LAB 10:48
PROVIDERS: PCP Internal Medicine; Referring Provider Internal Medicine; Visit Provider Internal Medicine
DX: Z01.818 Encounter for other preprocedural examination (principal); E11.9 Type 2 diabetes mellitus without complications
CPT/HCPCS: 36415; 80053; 83036; 85025; 85610; 85730

== ENCOUNTER 2024-05-08 14:09 | Observation (INO) | payer BC, SELFPAY ==
[2024-05-08] VITALS (15 sets, daily range): BP systolic 105–127; BP diastolic 61–79; PULSE 66–94; RESP 16–20; TEMP 36.4–37.1; O2SAT 86–98; BMI 30.4; BMI 30.5
--- NOTE | 2024-05-08 | BON_PTH ---
PATIENT: ROSALINDA GARCIA LOC: MS3 U#:[id number] AGE/SX: 64/F ROOM: MS319 RE05/08/[address]: Dr. Narciso Aguilar DPM : 1960 BED: 1 DIS: 05/10/2024 SPEC #: [id number] RECD: 05/08/24 15:29 STATUS: DEISI CHERYL #: [id number] HERMAN: 05/08/24 00:[address]: Narciso Aguilar DEPT: SURGICAL PATHOLOGY RECD BY: Clementina Osorio ENTERED: 05/11/24 08:44 SP TYPE: Bone OTHR DR: DO Dr. Ranjeet Mchugh MD Tissues: Bone of foot, NOS Procedures: Decalcification bone/plaque Surgery Specimen Level III HEADER OPERATION: Left subtalor joint fusion, talonavicular joint fusion PRE-OP DIAGNOSIS: Osteoarthritis, flat foot TISSUE SUBMITTED: Left subtalor joint MICROSCOPIC DIAGNOSIS Left subtalor joint, resection: Pieces of bone and cartilagenous tissue with minimal osteoarthritic changes. [facility] 05/12/2024 MICROSCOPIC DESCRIPTION Slides are reviewed. GROSS DESCRIPTION Received in fixative is one container labeled with the patient's name and designated Left subtalor joint. The specimen consists of a piece of bone measuring 1.5 x 1.0 x 0.1cm. Also present in the container are multiple small fragments of bone measuring in aggregate 0.5 x 0.5 x 0.1cm. The entire specimen is submitted in one cassette after decalcification. [facility] 05/11/2024 TC:5 CPT:55474,69449
[2024-05-08] MEDS: Lactated Ringers 1,000 ML 15 ML IV ×2 (08:50→10:16)
--- NOTE | 2024-05-08 09:30 | PRE.ANES_ITS ---
ASA Classification* ASA Classification ASA Classification: 2 Assessment & Plan Anesthesia* Anesthesia Assessment Anesthesia Assessment: Discussed sedation and/or anesthesia options, risks, benefits, and alternatives with patient/parents/legal guardian/POA. Questions invited. The patient/parents/legal guardian/POA seems to understand and agrees to proceed with anesthesia plan. Reviewed the physical assessment, medical history, allergy history and patient home medications list prior to surgery/procedure/anesthetic and documented any changes. Performed airway and anesthesia risk assessments. Anesthesia Type Anesthesia Type: General History Source History Obtained from:: Patient and Chart Anesthesia Focused Assessment* Temperature: 97.9 F Pulse Rate: 72 Blood Pressure: 124/66 Respiratory Rate: 18 Pulse Ox: 95 Oxygen Delivery Method: Room Air Airway Assessment Mouth opens: >3 cm Mallampati Score: IV Teeth Condition: Caps/Crowns (#9,10,11,12 are permanent partial) Neck Range of motion (ROM): Full ROM Pertinent Findings EKG Pertinent Findings:: 04/27/2024. Sinus rhythm. Non specific t-wave abnormality. Poor R wave progression. No acute change from 2018 Stress Test Pertinent Findings:: 05/05/2018. EF=62%. No ischemia ECHO Pertinent Findings:: 05/22/2016. EF=65%. Normal valves Focused Labs Anesthesia Preop lab: CBC WBC 5.8 K/mm3 (4.4-11.0) 04/16/24 10:52 RBC 5.01 M/mm3 (4.2-5.4) 04/16/24 10:52 Hgb 13.9 g/dL (12.0-15.0) 04/16/24 10:52 Hct 42.8 % (37-47) 04/16/24 10:52 Plt Count 299 K/mm3 (150-450) 04/16/24 10:52 CHEMISTRY Potassium 3.5 mmol/L (3.5-5.1) 04/16/24 10:52 Sodium 141 mmol/L (136-145) 04/16/24 10:52 BUN 16 mg/dL (7-18) 04/16/24 10:52 Creatinine 0.87 mg/dL (0.55-1.02) 04/16/24 10:52 Glucose 116 mg/dL (74-106) H 04/16/24 10:52 TSH 1.00 uIU/mL (0.358-3.74) 01/01/24 10:19 COAG PT 13.4 SECONDS (11.7-14.9) 04/16/24 10:52 Pre-Assessment Diagnosis/Proposed Procedure Planned Operative Procedure(s): LEFT FOOT TRIPLE ATHRODESIS Anesthesia History Anesthesia History - lip of shank cutter: Anesthesia History - lip of shank cutter Hx Hospitalization No 05/01/24 14:11 Any Problems With Anesthesia No 05/01/24 14:11 Cholinesterase deficiency No 05/01/24 14:11 You/Your Family Experience No 05/01/24 14:11 fever (hyperthermia) with Relationship Recent Exposure to Contagious No 05/08/24 08:39 Disease Does patient have nerve No 05/01/24 14:11 stimulator Patient instructed to have device shut off --Does patient have Pacemaker No 05/08/24 08:40 or ICD? When Was Last Pacemaker Check QUESTION #4 FULL TEXT: You/Your Family Experience fever (hyperthermia) with Anesthesia Last Oral Intake Last Oral intake: Last Oral Intake NPO since 20:30 05/08/24 08:40 Meds taken in AM with sips of Yes 05/08/24 08:40 water? Meds patient instructed to take am of surgery PONV PONV - lip of shank cutter: PONV - lip of shank cutter Female Yes 05/01/24 14:11 HX of Motion Sickness No 05/01/24 14:11 HX of N/V After Surgery No 05/01/24 14:11 Non-Smoker Yes 05/01/24 14:11 Duration of Surgery greater Yes 05/01/24 14:11 than 60 minutes Number of Risk Factors 3 05/01/24 14:11 PONV Score Moderate Risk 05/01/24 14:11 Height & Weight Height & Weight: Anesthesia: Height & Weight Height 5 ft 7 in 05/08/24 08:40 Weight: 88.36 kg 05/08/24 08:40 Body Mass Index (BMI) 30.4 05/08/24 08:40 Respiratory Assessment Respiratory Assessment - lip of shank cutter: Respiratory Tract Infection Hx - lip of shank cutter Hx Respiratory Tract Infection No 05/01/24 14:11 STOP Sleep Apnea STOP Sleep Apnea - lip of shank cutter: STOP Sleep Apnea - lip of shank cutter Hx Hypertension Yes 05/01/24 14:11 Hx Sleep Apnea Yes: UNABLE TO TOLERATE CPAP 05/01/24 14:11 CPAP No 05/01/24 14:11 BIPAP No 05/01/24 14:11 Do you snore loudly (louder than talking or can be heard Do you often feel tired/ fatigued/ sleepy during daytime? Has anyone observed you stop breathing during sleep? STOP Results Positive 05/01/24 14:11 QUESTION #5 FULL TEXT : Do you snore loudly (louder than talking or can be heard through closed doors)? Tobacco Use History Tobacco Use History - lip of shank cutter: Tobacco Use History - lip of shank cutter Tobacco Use Smoking Status Never smoker 05/01/24 14:11 Hx Tobacco Use No 05/01/24 14:11 Years Smoking Packs Smoked per Day Smoking Cessation Date was within the last 15 years Hx Smoking Cessation Date Hx Smoking Cessation Counseling Hematologic Medial History Hematologic Hx - lip of shank cutter: Hematologic Medical Hx - documentation lead Hx of Blood Transfusion No 05/01/24 14:11 Hx of Transfusion in last 3 No 05/01/24 14:11 Months Date of Last Transfusion (if within last 3 months) Ever experience any problems No 05/01/24 14:11 with transfusion(s)? Specify any problems Hx of Preganancy in last 3 N/A 05/01/24 14:11 Months Nurse Filling Out Transfusion SFRANTZ 05/01/24 14:11 & Questions: Date: 05/01/24 05/01/24 14:11 Time: 14:13 05/01/24 14:11 Patient unable to answer at this time (ie. confused, unrespo /Reproduction History /Reproductive History - lip of shank cutter: /Reproductive Hx- lip of shank cutter Hx Now No 05/01/24 14:11 Gestational Age (in weeks): EDC: Hx Hx Para Hx Section SAB No 05/01/24 14:11 Active Medications Active Medications: Current Medications Generic Name Dose Route Start Last Admin Trade Name Freq PRN Reason Stop Dose Admin Clindamycin Phosphate 900 mg in 50 mls @ 75 mls/hr 05/08/24 10:00 Cleocin IV 05/08/24 10:39 PREOP ONE Lactated Ringer's 1,000 mls @ 15 mls/hr 05/08/24 08:30 07/19/24 08:50 IV 15 mls/hr .Q48H LEIF Administration PFSH Medical History Post-menopausal Sleep apnea Acute sinus infection Acute bronchitis, unspecified Acute sinusitis, unspecified Wears glasses Alcohol use Thyroid disease Arthritis Restless legs Non-smoker CPAP (continuous positive airway pressure) dependence Hypertension History of echocardiogram History of stress test Cardiology follow-up encounter Strain of right knee Back pain Female pelvic pain Segmental and somatic dysfunction of lumbar region Insomnia Paroxysmal supraventricular tachycardia Essential (primary) hypertension Pneumonia Anxiety Back pain Costochondritis RLS (restless legs syndrome) PVD (peripheral vascular disease) Diastolic dysfunction Degeneration, intervertebral disc, lumbar Congenital hypothyroidism Osteoarthritis Vitamin B12 deficiency ELÍAS (obstructive sleep apnea) Obesity GERD (gastroesophageal reflux disease) Colon polyp Thoracic neuritis Segmental and somatic dysfunction of cervical region Segmental and somatic dysfunction of thoracic region Segmental and somatic dysfunction of head region Radiculopathy of cervical region Home Medications ?Medication ?Instructions ?Recorded ?Last Taken ?Type carbidopa 25 mg-levodopa 100 mg 2 tab PO QHS 08/04/16 05/07/24 History tablet lisinopril 20 mg tablet 20 mg PO BID 08/04/16 05/08/24 07:30 History levothyroxine 112 mcg tablet 112 mcg PO DAILY #90 tabs 07/14/19 05/08/24 07:30 History cholecalciferol (vitamin D3) 25 25 mcg PO DAILY 08/30/20 05/07/24 History mcg (1,000 unit) capsule hydrochlorothiazide 25 mg tablet 25 mg PO DAILY #90 tabs 08/30/20 05/07/24 Rx hydroxyzine HCl 25 mg tablet 25 mg PO QHS 12/07/20 05/07/24 History cyanocobalamin (vitamin B-12) 1,000 mcg PO DAILY 05/01/24 05/07/24 History 1,000 mcg tablet (Vitamin B-12) escitalopram oxalate 10 mg tablet 10 mg PO QHS 05/01/24 05/07/24 History rosuvastatin 5 mg tablet 5 mg PO QHS 05/01/24 05/07/24 History trazodone 100 mg tablet 200 mg PO QHS 05/01/24 05/07/24 History Allergy/AdvReac Type Severity Reaction Status Date / Time Penicillins (PCN) Allergy Hives Verified 05/08/24 08:37 Family History Mother CAD (coronary artery disease) Breast cancer CVA (cerebral vascular accident) Dementia Brother CAD (coronary artery disease) Sister Breast cancer Grandmother Breast cancer Father Dementia Surgical History History of knee replacement Hx of right cataract extraction Hx of left cataract extraction Hx of arthroscopic knee surgery History of lumbar surgery History of cholecystectomy Hx of hernia repair History of tonsillectomy Social History household members: spouse housing: house current occupational status: employed current occupation: [employer] [place] pets and animals: Yes pets and animals: dog(s) Smoking Status: Never smoker second hand exposure: No alcohol intake: never substance use type: does not use caffeine: Yes Type: coffee Number of servings: 2 Review of Systems (Anesthesia) ROS Narrative System reviewed and no additional complaints, except as documented.
--- NOTE | 2024-05-08 09:40 | RAD_ITS ---
STUDY: X-RAY - LEFT FOOT CLINICAL: Female, 64 years old. PAIN TECHNIQUE: 2 view(s) of the foot. COMPARISON: None. FINDINGS: 329 seconds of fluoroscopy of the foot was utilized operating room during hindfoot arthrodesis and 5 images are cemented for interpretation. . RAD/Foot 2 Views IMPRESSION: Fluoroscopy during hindfoot arthrodesis. Electronically Signed: Travis Peters MD at 18:22 EDT ,
[2024-05-08] MEDS: Clindamycin 900 MG/50 ML BAG 75 MG IV (10:16)
[2024-05-08] MEDS: Bupivacaine Mpf 0.5% 30 ML VIAL (10:55)
--- NOTE | 2024-05-08 14:14 | RAD_ITS ---
STUDY: X-RAY - LEFT FOOT CLINICAL: Female, 64 years old. post op TECHNIQUE: 3 view(s) of the foot. COMPARISON: None. FINDINGS: Normal talus, calcaneus, and tarsal bones. Status post hindfoot arthrodesis with multiple screws and sera. Normal metatarsi. Normal metatarsophalangeal joint of the great toe. Normal tibial and fibular sesamoid bones. Normal interphalangeal joint of the great toe. Normal phalanges of the great toe. Normal second through fifth metatarsophalangeal joints. Normal interphalangeal joints and phalanges of the lesser toes. Fiberglas cast a posterior soft tissue and bony detail. RAD/Foot min 3 Views IMPRESSION: Status post hindfoot arthrodesis. Electronically Signed: Travis Peters MD at 17:04 EDT ,
--- NOTE | 2024-05-08 14:15 | PCM.OPRPT ---
Report of Operation Date of Procedure: 05/08/24 Pre-Operative Diagnosis: Osteoarthritis left foot with flatfoot Post-Operative Diagnosis: Same Surgery/Procedure Performed:: Triple arthrodesis left foot Surgeon: Narciso Aguilar stroke program coordinator: Cara Type of Anesthesia: General and Local Specimen's removed: Debrided cartilage and bone left subtalar joint left foot Estimated Blood Loss (mL): 75 mL Description of Procedure: Indications: This is a 64 year-old female who has chronic left foot pain which has been worsening. She has tried extensive nonsurgical treatment - this has included but not limited to AFO bracing, foot orthotics, changes in shoegear, rest, activity modifications, and anti-inflammatories as well. Significant pain persists despite this. Xrays and MRI have been obtained pre operatively and reviewed.?This was discussed with her. She has pain to the hindfoot at level of the subtalar joint and calcaneal-cuboid and also talonavicular joints on the left foot, she has significant pes plano valgus with posterior tibial tendon dysfucntion. She would like to proceed with surgical intervention since symptoms persist and are limiting her daily activities. We discussed subtalar joint arthrodesis, talonavicular joint arthrodesis, and calcaneal-cuboid joint arthrodesis (ie Triple arthrodesis) on the left foot. The procedures were reviewed with her, as well as the goals, estimated recovery, alternative options, and the benefits vs risks with her. No weightbearing for at least 8 weeks, then protected weightbearing in [facility] for likely 4-6 weeks - could be longer. Can take 12-14 months for maximal healing - possibly longer. All the consent forms were reviewed with her and she freely signed them. No guarantees were given nor implied. No warrantees were given or implied. Operative Procedure: The patient was brought back into the operating room and was in the supine position.?She was carefully placed in the supine position secured with a safety belt, and a well-padded pneumatic tourniquet was applied around the left thigh.?She received general anesthesia per the anesthesia team. A time-out was performed and the patient was properly identified and surgical plan was confirmed.? The patient did receive prophylactic antibiotics for this procedure.? The left lower extremity was scrubbed, prepped and draped in the usual aseptic fashion. Attention was directed to the left foot and ankle. There was noted to be significant over pronation of the hindfoot with flexible pes planovalgus. The left foot/ankle/leg were elevated and also exsanguinated using an Esmarch bandage and the left thigh pneumatic tourniquet was inflated to 300mmHg. Left talonavicular joint arthrodesis: Attention was directed to the dorsal medial aspect of the talonavicular joint where a linear skin incision was made just lateral to the anterior tibial tendon overlying the talonavicular joint. This was done using a 15 blade. Careful dissection was completed down the joint capsule. The joint was encountered and the capsule was incised. The talonavicular joint was visualized and noted to have degenerative changes, there was degenerative changes with wearing away of cartilage. There was significant talar head uncovering due to pes planovalgus. The?cartilage was debrided from the talonavicular joint surfaces for arthrodesis. The debridement and prep of the joint was done with a [employer] joint deb and a sharp curette. All cartilage was debrided away to viable bone for good arthrodesis. The site was flushed out with copious amounts of normal saline solution. The joint surfaces were fenestrated using a drill bit on each surface. Augment was placed to the prepped fusion site. The talonavicular joint was placed into neutral position with proper talar head covering, the heel was in neutral to slightly valgus position to the weightbearing surface. The talonavicular joint was fixated using a Steinmann pin. Then was fixated using 2 x 4.0mm cannulated gianfranco compression partially threaded screws and 2 gianfranco sera using rigid open reduction internal fixation technique, with intra operative fluoroscopy guidance. The Steinmann pin was removed. Once the hardware were placed, there was noted to be good bone to bone compression and contact across the talonavicular joint fusion site with the prepped fusion joint surfaces in good alignment. The talonavicular joint fusion site was very rigid and stable. The screws and sera were in good position. This was confirmed with intra-operative fluoroscopy. The surgical site was flushed out with copious amounts of normal saline solution. The subcutaneous tissue layer were reapproximated using 3-0 Vicryl and the skin was reapproximated using 3-0 Monocryl. The anterior tibial and posterior tibial tendons were kept intact, and were carefully identified, retracted and protected as necessary. Left subtalar joint arthrodesis: Attention was directed to the lateral ankle/hindfoot where a curvilinear skin incision was made overlying the posterior subtalar joint. This was done using a 15 blade. Careful dissection was completed down the sinus tarsi. The posterior subtalar joint was encountered and the capsule was incised. The posterior subtalar joint was visualized and noted to have significant degenerative changes, there was degenerative changes with wearing away of cartilage. The?cartilage was debrided from the posterior subtalar joint surfaces for arthrodesis. The debridement and prep of the joint was done with a [employer] joint deb and a sharp curette. All cartilage was debrided away to viable bone for good arthrodesis. Bone/cartilage debrided from the subtalar joint was sent to pathology for further evaluation. The site was flushed out with copious amounts of normal saline solution. The joint surfaces were fenestrated using a drill bit on each surface. Augment was placed to the prepped fusion site. The subtalar joint was fixated using 2 x 7mm cannulated gianfranco compression partially threaded screws using rigid open reduction internal fixation technique, with intra operative fluoroscopy guidance. In order to place the screws, a skin incision was made to the posterior plantar heel and careful blunt dissection was completed down to the bone. Once the screws were placed, there was noted to be good bone to bone compression and contact across the fusion site with the prepped surfaces in good alignment. The subtalar fusion site was very rigid and stable. The screws were in good position. This was confirmed with intra-operative fluoroscopy. The surgical site was flushed out with copious amounts of normal saline solution. The subcutaneous tissue layer were reapproximated using 3-0 Vicryl and the skin was reapproximated using 3-0 Monocryl, and heel incision was reapproximated using 3-0 Monocryl. The peroneal tendons were kept intact, and were carefully identified, retracted and protected as necessary. Left calcaneal-cuboid joint arthrodesis: Attention was directed to the lateral hindfoot where a linear skin incision was made overlying the dorsal calcaneal cuboid joint. This was done using a 15 blade. Careful dissection was completed down the joint. The calcaneal cuboid joint was encountered and the capsule was incised. The joint was visualized and noted to have significant degenerative changes, there was degenerative changes with wearing away of cartilage. The?cartilage was debrided from the posterior subtalar joint surfaces for arthrodesis. The debridement and prep of the joint was done with a [employer] joint deb and a sharp curette. All cartilage was debrided away to viable bone for good arthrodesis. The site was flushed out with copious amounts of normal saline solution. The joint surfaces were fenestrated using a drill bit on each surface. Augment was placed to the prepped fusion site. The prepped joint was fixated using 1 x 4mm cannulated gianfranco compression partially threaded screw and 2 gianfranco stapes using rigid open reduction internal fixation technique, with intra operative fluoroscopy guidance. Once the hardware was placed, there was noted to be good bone to bone compression and contact across the fused joint with the prepped joint surfaces in good alignment. The fusion site was very rigid and stable. The screw and sera were in good position. This was confirmed with intra-operative fluoroscopy. The surgical site was flushed out with copious amounts of normal saline solution. The subcutaneous tissue layer were reapproximated using 3-0 Vicryl and the skin was reapproximated using 3-0 Monocryl, and heel incision was reapproximated using 3-0 Monocryl. The peroneal tendons were kept intact, and were carefully identified, retracted and protected as necessary. Of note the all joint surfaces were prepped as noted above prior to placing the final hardware, upon reduction of the foot into proper position the talonavicular fusion site was first fixated, follwed by the subtalar fusion site and then finally the calcaneal cuboid fusion site. At the end of the procedure, the left ankle and foot were put through range of motion, the fusion sites of the hindfoot were very rigid, otherwise rest of the foot and ankle were gliding normally with no popping, clicking or crepitus. There was negative anterior drawer sign and no ankle instability noted. The foot was in good position clinically, it was very stable. The pneumatic tourniquet was deflated and there was immediate return of warmth and perfusion to the left foot with normal temperature gradient (total tourniquet time was 120 minutes). Capillary fill time was less than three seconds.?There was normal temperature to the foot. Hemostasis was achieved prior to closure. A dressing was applied, which consisted of Betadine-soaked adaptic, 4 x 4 gauze, Kerlix, and Eulogio bandages. A well padded below knee posterior splint was applied to the left foot/ankle/leg with heel offloaded. Of note all vital structures, including all vital neurovascular structures and tendon structures were properly identified, protected and retracted as necessary throughout the above operative procedure. The patient was transported from the operating room to the recovery room with vital signs stable and in good condition.? Postoperative orders were placed.?She was admitted for post operative pain control and observation. Left foot and ankle xrays, 3 views, were obtained and reviewed post op. There was noted to be good alignment of the fusion sites with good bone to bone contact and screws and sera in place. Ankle was in good position with intact mortise. No evidence of complication. Also of note she received a left lower extremity popliteal block per the anesthesia service in the recovery room. Grafts/Implants Used: Augment, [place] screws and sera Complications None
--- NOTE | 2024-05-08 14:18 | HP.PCM_ITS ---
HPI - General General Date of Admission: 05/08/24 Chief Complaint: s/p left foot surgery, pain HPI Narrative ROSALINDA GARCIA, is a 64 F who presents s/p left hindfoot triple arthrodesis due to osteoarthritis with flexible flatfoot. Procedure went well with no c omplications, however due to the extent of the surgery she has been admitted for post operative pain management and monitoring. [facility] Medical History Post-menopausal Sleep apnea Acute sinus infection Acute bronchitis, unspecified Acute sinusitis, unspecified Wears glasses Alcohol use Thyroid disease Arthritis Restless legs Non-smoker CPAP (continuous positive airway pressure) dependence Hypertension History of echocardiogram History of stress test Cardiology follow-up encounter Strain of right knee Back pain Female pelvic pain Segmental and somatic dysfunction of lumbar region Insomnia Paroxysmal supraventricular tachycardia Essential (primary) hypertension Pneumonia Anxiety Back pain Costochondritis RLS (restless legs syndrome) PVD (peripheral vascular disease) Diastolic dysfunction Degeneration, intervertebral disc, lumbar Congenital hypothyroidism Osteoarthritis Vitamin B12 deficiency ELÍAS (obstructive sleep apnea) Obesity GERD (gastroesophageal reflux disease) Colon polyp Thoracic neuritis Segmental and somatic dysfunction of cervical region Segmental and somatic dysfunction of thoracic region Segmental and somatic dysfunction of head region Radiculopathy of cervical region Home Medications ?Medication ?Instructions ?Recorded ?Last Taken ?Type carbidopa 25 mg-levodopa 100 mg 2 tab PO QHS 08/04/16 05/07/24 History tablet lisinopril 20 mg tablet 20 mg PO BID 08/04/16 05/08/24 07:30 History levothyroxine 112 mcg tablet 112 mcg PO DAILY #90 tabs 07/14/19 05/08/24 07:30 History cholecalciferol (vitamin D3) 25 25 mcg PO DAILY 08/30/20 05/07/24 History mcg (1,000 unit) capsule hydrochlorothiazide 25 mg tablet 25 mg PO DAILY #90 tabs 08/30/20 05/07/24 Rx hydroxyzine HCl 25 mg tablet 25 mg PO QHS 12/07/20 05/07/24 History cyanocobalamin (vitamin B-12) 1,000 mcg PO DAILY 05/01/24 05/07/24 History 1,000 mcg tablet (Vitamin B-12) escitalopram oxalate 10 mg tablet 10 mg PO QHS 05/01/24 05/07/24 History rosuvastatin 5 mg tablet 5 mg PO QHS 05/01/24 05/07/24 History trazodone 100 mg tablet 200 mg PO QHS 05/01/24 05/07/24 History Allergy/AdvReac Type Severity Reaction Status Date / Time Penicillins (PCN) Allergy Hives Verified 05/08/24 08:37 Family History Mother CAD (coronary artery disease) Breast cancer CVA (cerebral vascular accident) Dementia Brother CAD (coronary artery disease) Sister Breast cancer Grandmother Breast cancer Father Dementia Surgical History History of knee replacement Hx of right cataract extraction Hx of left cataract extraction Hx of arthroscopic knee surgery History of lumbar surgery History of cholecystectomy Hx of hernia repair History of tonsillectomy Social History household members: spouse housing: house current occupational status: employed current occupation: [employer] pets and animals: Yes pets and animals: dog(s) Smoking Status: Never smoker second hand exposure: No alcohol intake: never substance use type: does not use caffeine: Yes Type: coffee Number of servings: 2 Vital Signs Vital Signs Vital Signs: 05/08/24 08:39 05/08/24 08:40 05/08/24 09:47 Temperature 97.9 F 97.9 F Temperature Source Temporal Pulse Rate 72 72 Respiratory Rate 18 18 Respiratory Pattern Normal Blood Pressure 124/66 H 124/66 H Blood Pressure Mean 85 Blood Pressure Source Monitor Blood Pressure Position Semi-Fowlers Blood Pressure Location Left Arm Pulse Ox 95 95 Oxygen Delivery Method Room Air Room Air Weight Weight: 88.36 kg Body Mass Index (BMI) 30.4 Physical Exam Const alert, oriented x3 and no apparent distress Constitutional Narrative: Left foot post op alignment maintained, CFT < 2 seconds to all toes, dressing/splint is clean, dry and intact. Assessment & Plan Assessment/Plan (1) Arthritis of foot, left: (2) Pain in left foot: PLAN: Plan s/p triple arthrodesis (subtalar, talonavicular and calcaneal-cuboid joint fusion) on 05/08/2024 admitted for pain management and monitoring Keep dressing/splint left lower extremity clean, dry and intact No weightbearing left foot Keep left foot elevated for at least 50 minutes of every hour DVT Prophylaxis: Lovenox 40mg subc daily starting tomorrow Pain management: Dilaudid, Oxyir, and Acetaminophen Antibiotic prophylaxis: Ancef 1g q 8 hr Chronic medical problems: Consulted hospital medicine Plan is for patient to be discharged home once pain is controlled on oral pain medications without lower extremity block in place
--- NOTE | 2024-05-08 14:18 | PCM.POST.ANE ---
Anesthesia: Postop Eval I Current Vital Signs Temperature: 98.6 F Pulse Rate: 90 Blood Pressure: 119/75 Respiratory Rate: 16 Pulse Ox: 95 Oxygen Delivery Method: Room Air Assessment Airway patent: Yes Spontaneous unlabored respirations: Yes Mental status: Awake and Calm nausea: No Vomiting: No Anesthesia Complication: No Fluid Hydration Crystalloid volume administer (ml): 1,500 Total IV fluid infused: 1,500 Progress Note Anesthesia document: Postop Eval 1 completed: Yes
--- NOTE | 2024-05-08 14:34 | RAD_ITS ---
STUDY: X-RAY - LEFT ANKLE REASON FOR EXAM: Female, 64 years old. post op TECHNIQUE: 3 view(s) of the ankle. COMPARISON: 03/01/2022 FINDINGS: Normal visualized distal tibia and fibula. Normal medial and lateral malleoli. Normal tibiotalar articulation and ankle mortise. Normal visualized talus and calcaneus. Interval hindfoot arthrodesis with multiple screws and sera. Fiberglas cast obscures soft tissue and bony detail. RAD/Ankle min 3 Views IMPRESSION: Interval hindfoot arthrodesis. Electronically Signed: Travis Peters MD at 17:03 EDT ,
--- NOTE | 2024-05-08 14:43 | SUR.PHASEI ---
DR MATHIS INSTRUCTED THIS RN TO PLACE GAUZE AND 4 ALEX OVER LEFT LATERAL FOOT APPROX QUARTER-SIZE STRIKETHROUGH WHICH WAS COMPLETED IN PACU.
--- NOTE | 2024-05-08 15:43 | PCM.PN.HOSP ---
Subjective Subjective 64 yo F with htn and hld presents for elective surgery OA of her left foot with flat foot s/p triple arthrodesis of the left foot. Doing well and pain is controlled. On a little bit of oxygen post-operatively but does not have any chronic pulmonary disease. Objective Data Objective Data Vital Signs: Vital Signs Temp Pulse Resp BP Pulse Ox O2 Del Method O2 Flow Rate 97.6 F L 74 20 H 109/66 97 Room Air 2 05/08/24 15:14 05/08/24 15:14 05/08/24 15:14 05/08/24 15:14 05/08/24 15:14 05/08/24 15:14 05/08/24 14:47 Oxygen Flow Rate (L/min) 2 Oxygen Delivery Method Room Air Weight: 194 lb 12.8 oz Body Mass Index (BMI) 30.5 Intake & Output: Intake and Output for Last 24 Hours 05/07/24 05/08/24 05/09/24 03:59 03:59 03:59 Intake Total 1050 / 1050 Balance 1050 / 1050 Physical Exam Narrative General: Alert, Oriented x3, Cooperative, No apparent distress HEENT: Atraumatic, PERRLA, EOMI, Normocephalic Oral: Moist Mucosa Neck: Supple, No JVD Lungs: Diminished, Normal air movement, No rhonchi, No wheeze, No rales Cardiovascular: Regular rate, Regular Rhythm, Normal S1, Normal S2, No murmurs Abdomen: Soft, Non Tender, Non-Distended, No Hepato-splenomegaly Extremities: No edema, Capillary Refill Less than 3 Seconds Skin: Left foot dressing intact wrapped Musculoskeletal: No Tenderness to Palpation of Joints or Extremities Neurological: No focal neurological deficits, Motor Exam 5/5 strength throughout, Sensory exam intact to light touch and pain Psych/Mental Status: Normal Affect, Appropriate Assessment & Plan Assessment/Plan (1) Arthritis of foot, left: (2) Status post arthrodesis: PLAN: Plan 1. Left foot arthritis status post arthrodesis on 05/08/2024 ? Pain management per primary ? PT/OT ? DVT prophylaxis per primary 2. Essential HTN/HLD ? Blood pressures are stable, can resume her home blood pressure medications ? Will monitor make adjustments as necessary ? Continue with Crestor ? Will recheck a BMP in the morning 3. Anxiety/depression ? Stable ? Continue with her home medications DVT: Per primary Charges/Coding Visit Charges Office Visits / Consults: 71019 OV L3 New 30min
--- NOTE | 2024-05-08 16:24 | POSTOPAN2_ITS ---
Anesthesia Postop Eval I Sum Postop Eval Completion status Anesthesia document: Postop Eval 1 completed: Yes Anesthesia Postop Eval I Summary Anesthesia Postop Eval I Summary: Anesthesia Postop Eval I: Assessment Summary Airway patent Yes 05/08/24 14:19 [email or web address] [email or web address] Spontaneous unlabored Yes 05/08/24 14:19 PHARMACY [email or web address].[email or web address] respirations Mental status Awake,Calm 05/08/24 14:19 PHARMACY [email or web address] nausea No 05/08/24 14:19 PHARMACY [email or web address] Vomiting No 05/08/24 14:19 PHARMACY MESSENGER.[email or web address] Anesthesia Postop Eval I: Fluid Summary Crystalloid volume administer 1,500 05/08/24 14:19 PHARMACY [email or web address] (ml) Colloids volume administered ( ml) Blood Product volume administered (ml) Total IV fluid infused 1,500 05/08/24 14:19 PHARMACY [email or web address].TACO Anesthesia Postop Eval I: Summary Notes Anesthesia Complication No 05/08/24 14:19 PHARMACY [email or web address].TACO Anesthesia Complication Comment: Post-operative progress note Anesthesia: Postop Eval II Evaluation Mental status: Awake and Calm Pain Level: 1 nausea: No Vomiting: No
--- NOTE | 2024-05-08 16:24 | PCM.POSTANE2 ---
Anesthesia Postop Eval I Sum Postop Eval Completion status Anesthesia document: Postop Eval 1 completed: Yes Anesthesia Postop Eval I Summary Anesthesia Postop Eval I Summary: Anesthesia Postop Eval I: Assessment Summary Airway patent Yes 05/08/24 14:19 CLERICAL [email or web address] Spontaneous unlabored Yes 05/08/24 14:19 CLERICAL CLERK.TACO respirations Mental status Awake,Calm 05/08/24 14:19 CLERICAL [email or web address] nausea No 05/08/24 14:19 CLERICAL [email or web address] Vomiting No 05/08/24 14:19 CLERICAL [email or web address] Anesthesia Postop Eval I: Fluid Summary Crystalloid volume administer 1,500 05/08/24 14:19 CLERICAL [email or web address] (ml) Colloids volume administered ( ml) Blood Product volume administered (ml) Total IV fluid infused 1,500 05/08/24 14:19 CLERICAL CLERK.TACO Anesthesia Postop Eval I: Summary Notes Anesthesia Complication No 05/08/24 14:19 CLERICAL CLERK.TACO Anesthesia Complication Comment: Post-operative progress note Anesthesia: Postop Eval II Evaluation Mental status: Awake and Calm Pain Level: 1 nausea: No Vomiting: No
[2024-05-08] MEDS: oxyCODONE 5 MG Tablet 10 MG PO (19:26)
[2024-05-08] MEDS: Acetaminophen 325 MG Tablet 650 MG PO (19:27)
[2024-05-08] MEDS: Clindamycin in 0.9% Sod Chlor 600 MG/50 ML BAG 100 MG IV (21:09)
[2024-05-08] MEDS: Escitalopram Oxalate 10 MG Tablet PO (21:10)
[2024-05-08] MEDS: traZODone 100 MG Tablet 200 MG PO (21:10)
[2024-05-08] MEDS: Atorvastatin Calcium 10 MG Tablet PO (21:10)
[2024-05-08] MEDS: Carbidopa/Levodopa 25/100 Tablet PO (21:11)
[2024-05-08] MEDS: hydrOXYzine PAM 25 MG Capsule PO (21:11)
[2024-05-08] MEDS: 0.9% Saline Lock 10 ML Syringe IV (21:11)
[2024-05-09 03:14] VITALS: BP 117/75; PULSE 66; RESP 16; TEMP 37; O2SAT 95
[2024-05-09] MEDS: Acetaminophen 325 MG Tablet 650 MG PO ×2 (03:35→20:08)
[2024-05-09] MEDS: oxyCODONE 5 MG Tablet 10 MG PO ×2 (03:35→20:09)
[2024-05-09] MEDS: Levothyroxine 112 MCG Tablet PO (05:08)
[2024-05-09] MEDS: Clindamycin in 0.9% Sod Chlor 600 MG/50 ML BAG 100 MG IV ×3 (05:08→22:31)
[2024-05-09] MEDS: 0.9% Saline Lock 10 ML Syringe IV ×2 (05:08→13:53)
[2024-05-09 07:19] LABS: Absolute Lymphocyte Count 1.26 X10^3/uL (0.83-4.51); Absolute Neutrophil Count 12.7 X10^3/uL (2.0-7.7); Basophil# 0.03 X10^3/uL; Basophil% 0.2 % (0-1); Hematocrit 36.4 % (37-47); Hemoglobin 11.6 g/dL (12.0-15.0); Lymphocyte # 1.26 X10^3/ul (0.83-4.51); Lymphocyte % 8.1 % (19-41); Mean Corp Hgb Conc 31.9 g/dL (32-36); Mean Corpuscular Hgb 27.6 pg (27.0-32.0); Mean Corpuscular Volume 86.5 fL (81-99); Mean Platelet Vol. 9.8 fl (6.2-12.0); Monocyte# 1.45 X10^3/uL; Monocyte% 9.4 % (0-10); NRBC Flagged by Analyzer 0 % (0-5); Neutrophil # 12.65 X10^3/uL (2.7-7.7); Neutrophil % 81.7 % (47-70); Platelet Count 304 K/mm3 (150-450); RBC Distribution Width CV 13.3 % (11.6-14.6); RBC Distribution Width SD 41.4 fl (35.1-43.9); Red Blood Count 4.21 M/mm3 (4.2-5.4); White Blood Count 15.5 K/mm3 (4.4-11.0)
[2024-05-09 07:43] VITALS: BP 100/69; PULSE 68; RESP 16; TEMP 36.8; O2SAT 96
[2024-05-09 07:43] LABS: Anion Gap 7 (5-15); BUN 15 mg/dL (7-18); BUN/Creat Ratio 18.1 RATIO (10-20); Calcium,Total 8.4 mg/dL (8.5-10.1); Chloride 105 mmol/L (98-107); Creatinine, Serum 0.83 mg/dL (0.55-1.02); EST Glomerular Filtration Rate 73 mL/min (>60); Est Glom Filt Rate - Afr Amer 88 mL/min (>60); Glucose 135 mg/dL (74-106); Sodium Level 138 mmol/L (136-145)
--- NOTE | 2024-05-09 08:53 | PN.HOSP_ITS ---
Subjective Subjective Doing well, no issues overnight Objective Data Objective Data Vital Signs: Vital Signs Temp Pulse Resp BP Pulse Ox O2 Del Method O2 Flow Rate 98.2 F 68 16 100/69 96 Room Air 2 05/09/24 07:43 05/09/24 07:43 05/09/24 07:43 05/09/24 07:43 05/09/24 07:43 05/09/24 07:43 05/09/24 03:14 Oxygen Flow Rate (L/min) 2 Oxygen Delivery Method Room Air Weight: 194 lb 12.8 oz Body Mass Index (BMI) 30.5 Intake & Output: Intake and Output for Last 24 Hours 05/08/24 05/09/24 05/10/24 03:59 03:59 03:59 Intake Total 1460 / 1460 50 / 50 Balance 1460 / 1460 50 / 50 Lab / Micro Data 05/09/24 07:01 05/09/24 07:01 Labs: Laboratory Results - last 24 hr 05/09/24 07:01: WBC 15.5 H, RBC 4.21, Hgb 11.6 L, Hct 36.4 L, MCV 86.5, MCH 27.6, MCHC 31.9 L, RDW Std Deviation 41.4, RDW Coeff of Adelia 13.3, Plt Count 304, MPV 9.8, Immature Gran % (Auto) 0.600, Neut % (Auto) 81.7 H, Lymph % (Auto) 8.1 L, [place] % (Auto) 9.4, Eos % (Auto) 0.0, Baso % (Auto) 0.2, Absolute Neuts (auto) 12.7 H, Absolute Lymphs (auto) 1.26, Nucleated RBC % 0, Sodium 138, Potassium 4.0, Chloride 105, Carbon Dioxide 26.0, Anion Gap 7, BUN 15, Creatinine 0.83, Estim Creat Clear Calc 76.10, Est GFR (MDRD) Af Amer 88, Est GFR (MDRD) Non-Af 73, BUN/Creatinine Ratio 18.1, Glucose 135 H, Calcium 8.4 L Radiography Diagnostic Testing: Radiology Impression Foot X-Ray 05/08/24 09:40 IMPRESSION: Fluoroscopy during hindfoot arthrodesis. Electronically Signed: Travis Peters MD at 18:22 EDT , Foot X-Ray 05/08/24 14:14 IMPRESSION: Status post hindfoot arthrodesis. Electronically Signed: Travis Peters MD at 17:04 EDT , Ankle X-Ray 05/08/24 14:34 IMPRESSION: Interval hindfoot arthrodesis. Electronically Signed: Travis Peters MD at 17:03 EDT , Physical Exam Narrative General: Alert, Oriented x3, Cooperative, No apparent distress HEENT: Atraumatic, PERRLA, EOMI, Normocephalic Oral: Moist Mucosa Neck: Supple, No JVD Lungs: Diminished, Normal air movement, No rhonchi, No wheeze, No rales Cardiovascular: Regular rate, Regular Rhythm, Normal S1, Normal S2, No murmurs Abdomen: Soft, Non Tender, Non-Distended, No Hepato-splenomegaly Extremities: No edema, Capillary Refill Less than 3 Seconds Skin: Left foot dressing intact wrapped Musculoskeletal: No Tenderness to Palpation of Joints or Extremities Neurological: No focal neurological deficits, Motor Exam 5/5 strength throughout, Sensory exam intact to light touch and pain Psych/Mental Status: Normal Affect, Appropriate Assessment & Plan Assessment/Plan (1) Arthritis of foot, left: (2) Status post arthrodesis: PLAN: Plan 1. Left foot arthritis status post arthrodesis on 05/08/2024 ? Pain management per primary ? PT/OT ? DVT prophylaxis per primary ? Currently on room air, white count went up to 15,000 likely reactive from surgery no signs of infection. Medically cleared for discharge. Can resume all of her home medications 2. Essential HTN/HLD ? Blood pressures are stable, can resume her home blood pressure medications ? Will monitor make adjustments as necessary ? Continue with Crestor ? Renal function is stable can resume her home blood pressure medications on discharge 3. Anxiety/depression ? Stable ? Continue with her home medications DVT: Per primary Charges/Coding Visit Charges Office Visits / Consults: 25849 OV L3 Est 20min
[2024-05-09 09:07] VITALS: BP 104/58
[2024-05-09] MEDS: Enoxaparin 40 MG/0.4 ML Syringe SC (09:09)
[2024-05-09] MEDS: Polyethylene Glycol 3350 17 GM PACKET PO (09:09)
[2024-05-09 12:15] VITALS: BP 114/70; PULSE 75; RESP 18; TEMP 36.8; O2SAT 92
[2024-05-09] MEDS: hydroCHLOROthiazide 25 MG Tablet PO (12:17)
[2024-05-09] MEDS: Lisinopril 20 MG Tablet PO ×2 (12:17→22:33)
--- NOTE | 2024-05-09 13:43 | CASEMGMT ---
RN CM into pt room, pt sitting up in bed with at bedside. Pt states lives with at home, has walker, scooter, and crutches. Pt denies any DC needs at this time.
--- NOTE | 2024-05-09 14:20 | PCM.DC ---
Discharge Instructions Activity Discharge Activity: May Not Drive Weight Bearing Status: No weight bearing (No weightbearing left foot) Keep extremity elevated above heart level: Left Leg (Keep left foot elevated with pillows for at least 50 minutes of every hour) Dressing / Incision Call your doctor if your incision/area has: Continuous Slow Oozing, Sudden Increased Bleeding and Foul Smelling Discharge Call your doctor if you observe: Fever of 101 or Higher, Shortness of breath, Chest pain, Increased palpitations (irregular heartbeat), Calf discomfort and Uncontrolled pain Change Dressing in: do not change dressing Remove Dressing in: do not remove dressing Cleanse incision/area with: Keep Dressing Clean & Dry Follow Up Care Please Follow Up With: Narciso Aguilar DPM When: Saturday05/13/2024 at [facility] [place], call sooner if needed Test Results: Test results from this visit will be discussed in further detail at your follow-up appointment, if applicable. Discharge Plan Admission Admit Date/Time: 05/08/24 14:09 Attending Provider: Narciso Aguilar Primary Care Provider: Martine Maldonado Consulting Providers: Ranjeet Rene Discharge Orders/Prescriptions Prescriptions: New oxycodone-acetaminophen [Percocet] 5-325 mg tablet 1 tab PO Q6H PRN (Reason: pain) 3 Days Qty: 12 0RF Eliquis 2.5 mg tablet 2.5 mg PO Q12H Qty: 60 0RF Continued levothyroxine 112 mcg tablet 112 mcg PO DAILY Qty: 90 Patient Comments: TAKE 1 TABLET BY MOUTH ONCE DAILY cholecalciferol (vitamin D3) 25 mcg (1,000 unit) capsule 25 mcg PO DAILY hydrochlorothiazide 25 mg tablet 25 mg PO DAILY Qty: 90 6RF lisinopril 20 MG tablet 20 mg PO BID carbidopa-levodopa 1 TABLET tablet 2 tab PO QHS hydroxyzine HCl 25 MG tablet 25 mg PO QHS cyanocobalamin (vitamin B-12) [Vitamin B-12] 1,000 mcg tablet 1,000 mcg PO DAILY trazodone 100 mg tablet 200 mg PO QHS escitalopram oxalate 10 mg tablet 10 mg PO QHS rosuvastatin 5 mg tablet 5 mg PO QHS Referrals / Follow Up: Martine Maldonado DO [Primary Care Provider] -
--- NOTE | 2024-05-09 14:22 | VDLE_ITS ---
Reason For Study: PAIN RIGHT LEFT GSV is normal. GSV is normal. CFV is compressible, spontaneous, phasic, CFV is compressible, spontaneous, phasic, competent and demonstrates normal competent, and demonstrates normal augmentation. augmentation. FV is compressible, spontaneous, phasic, FV is compressible, spontaneous, phasic, competent and demonstrates normal competent and demonstrates normal augmentation. augmentation. POP V is compressible, spontaneous, phasic, POP V is compressible, spontaneous, phasic, competent and demonstrates normal competent and demonstrates normal augmentation. augmentation. T/P Trunk is compressible. T/P Trunk is compressible. PTV is compressible. Unable to assess below knee due to recent RT PerV is compressible. surgery and bandages. Procedure This is a venous duplex using B-mode, color flow and spectral Doppler. Exam performed portable in patient room. The exam was diagnostic. A preliminary report was called and/or faxed to Miguel HARDIN MS[facility]. VL/Venous Duplex US - [place] Extrem Interpretation Summary Deep veins of the bilateral lower extremities are patent and compressible segme ntally. There is no evidence of bilateral lower extremity deep vein thrombosis. The bilateral great saphenous veins appear patent and compressible segmentally. Limited study below knee on left due to dressings Ordering Physician: Narciso Aguilar Referring Physician: Martine Maldonado Performed By: Mai Schuster, RDCS, RVT
--- NOTE | 2024-05-09 14:22 | PCM.PROGNOTE ---
Subjective Subjective Patient was seen today for follow up left foot surgery, she relates it feels like the block has worn off, she relates pain is well controlled and would like to go home. She has no complaints other than a tiredness/abnormal sensation behind her left knee which started this morning, she relates it is not a pain or cramp sensation though. Objective Data Objective Data Vital Signs: Vital Signs Temp Pulse Resp BP Pulse Ox O2 Del Method O2 Flow Rate 98.3 F 75 18 114/70 92 Room Air 2 05/09/24 12:15 05/09/24 12:15 05/09/24 12:15 05/09/24 12:15 05/09/24 12:15 05/09/24 12:15 05/09/24 03:14 Oxygen Flow Rate (L/min) 2 Oxygen Delivery Method Room Air Weight: 88.36 kg Body Mass Index (BMI) 30.5 Intake & Output: Intake and Output for Last 24 Hours 05/07/24 05/08/24 05/09/24 23:59 23:59 23:59 Intake Total 1460 / 1460 50 / 50 Balance 1460 / 1460 50 / 50 Lab / Micro Data 05/09/24 07:01 05/09/24 07:01 Labs: Laboratory Results - last 24 hr 05/09/24 07:01: WBC 15.5 H, RBC 4.21, Hgb 11.6 L, Hct 36.4 L, MCV 86.5, MCH 27.6, MCHC 31.9 L, RDW Std Deviation 41.4, RDW Coeff of Adelia 13.3, Plt Count 304, MPV 9.8, Immature Gran % (Auto) 0.600, Neut % (Auto) 81.7 H, Lymph % (Auto) 8.1 L, [place] % (Auto) 9.4, Eos % (Auto) 0.0, Baso % (Auto) 0.2, Absolute Neuts (auto) 12.7 H, Absolute Lymphs (auto) 1.26, Nucleated RBC % 0, Sodium 138, Potassium 4.0, Chloride 105, Carbon Dioxide 26.0, Anion Gap 7, BUN 15, Creatinine 0.83, Estim Creat Clear Calc 76.10, Est GFR (MDRD) Af Amer 88, Est GFR (MDRD) Non-Af 73, BUN/Creatinine Ratio 18.1, Glucose 135 H, Calcium 8.4 L Radiography Diagnostic Testing: Radiology Impression Foot X-Ray 05/08/24 09:40 IMPRESSION: Fluoroscopy during hindfoot arthrodesis. Electronically Signed: Travis Peters MD at 18:22 EDT Reading Location ID and State: [id number] / [employer] , Service support , Foot X-Ray 05/08/24 14:14 IMPRESSION: Status post hindfoot arthrodesis. Electronically Signed: Travis Peters MD at 17:04 EDT , Ankle X-Ray 05/08/24 14:34 IMPRESSION: Interval hindfoot arthrodesis. Electronically Signed: Travis Peters MD at 17:03 EDT , Physical Exam Const alert, oriented x3 and no apparent distress Constitutional Narrative: Left foot/ankle/leg dressing/splint is clean, dry and intact with heel offloaded and bleeding controlled, sensation is intact to lesser toes and to the heel, she is able to dorsiflex and plantarflex the toes without pain or issues, she denies calf pain, but relates to abnormal sensation posterior left knee, no suspicon for infection. Assessment & Plan Assessment/Plan (1) Pain in left foot: (2) Status post arthrodesis: (3) Arthritis of foot, left: PLAN: Plan s/p triple arthrodesis (subtalar, talonavicular and calcaneal-cuboid joint fusion) on 05/08/2024 admitted for pain management and monitoring Keep dressing/splint left lower extremity clean, dry and intact No weightbearing left foot Keep left foot elevated for at least 50 minutes of every hour DVT Prophylaxis: Lovenox 40mg subc daily - will order eliquis 2.5mg PO q 12 hours as outpatient Pain management: Dilaudid, Oxyir, and Acetaminophen Antibiotic prophylaxis: Clindamycin 600g q 8 hr Chronic medical problems: Consulted hospital medicine - appreciate assistance Due to left posterior knee symptoms need to rule out DVT prior to discharge - stat venous doppler order placed - this is medically necessary and she is not ready for discharge at this time.
[2024-05-09 17:55] VITALS: BP 114/68; PULSE 72; RESP 16; TEMP 37.3; O2SAT 94
[2024-05-09 20:44] VITALS: BP 116/70; PULSE 79; RESP 16; TEMP 37.2; O2SAT 96
[2024-05-09] MEDS: hydrOXYzine PAM 25 MG Capsule PO (22:31)
[2024-05-09] MEDS: traZODone 100 MG Tablet 200 MG PO (22:31)
[2024-05-09] MEDS: Carbidopa/Levodopa 25/100 Tablet PO (22:32)
[2024-05-09] MEDS: Atorvastatin Calcium 10 MG Tablet PO (22:32)
[2024-05-09] MEDS: Escitalopram Oxalate 10 MG Tablet PO (22:33)
[2024-05-10 02:45] VITALS: BP 95/59; PULSE 65; RESP 16; TEMP 36.7; O2SAT 94
[2024-05-10] MEDS: Levothyroxine 112 MCG Tablet PO (06:44)
[2024-05-10] MEDS: Clindamycin in 0.9% Sod Chlor 600 MG/50 ML BAG 100 MG IV (06:45)
[2024-05-10] MEDS: Acetaminophen 325 MG Tablet 650 MG PO ×2 (06:48→13:49)
[2024-05-10 07:30] VITALS: O2SAT 97
[2024-05-10 08:24] VITALS: BP 104/68; PULSE 77; RESP 20; TEMP 37.1; O2SAT 93
[2024-05-10 08:27] VITALS: PULSE 60
[2024-05-10] MEDS: Polyethylene Glycol 3350 17 GM PACKET PO (10:45)
[2024-05-10] MEDS: Enoxaparin 40 MG/0.4 ML Syringe SC (10:45)
[2024-05-10 11:28] VITALS: BP 109/65; PULSE 72; RESP 18; TEMP 36.7; O2SAT 93
[2024-05-10] MEDS: Lisinopril 20 MG Tablet PO (11:33)
[2024-05-10] MEDS: hydroCHLOROthiazide 25 MG Tablet PO (11:33)
[2024-05-11 08:01] LABS: Vitamin D,25 Hydroxy 73.3 ng/mL
== END 2024-05-10 14:02 | disposition home or self-care (01) ==
LOC: SDC 14:24 → MS3 14:24
PROVIDERS: Family Medicine; Admitting Provider Podiatrist; PCP Internal Medicine; Referring Provider Podiatrist; Visit Provider Podiatrist
PROC: (CPT 28715; principal; 2024-05-08 09:45)
DX: M19.072 Primary osteoarthritis, left ankle and foot (principal); G47.00 Insomnia, unspecified; I10 Essential (primary) hypertension; E78.5 Hyperlipidemia, unspecified; M21.42 Flat foot [pes planus] (acquired), left foot; K21.9 Gastro-esophageal reflux disease without esophagitis; G47.33 Obstructive sleep apnea (adult) (pediatric); I73.9 Peripheral vascular disease, unspecified; F41.9 Anxiety disorder, unspecified; F32.A Depression, unspecified; Z79.899 Other long term (current) drug therapy; E07.9 Disorder of thyroid, unspecified; Z79.890 Hormone replacement therapy; M79.672 Pain in left foot
CPT/HCPCS: 28715; 01480; 64445; 36415; 73610; 73620; 73630; 76000; 80048; 82306; 85025; 88304; 88311; 93970; 94668; 94762; 96365; 96366; 96372; 97116; 97162; 97166; 99221; C1713; J7120; A4216; G0378; J2405

== ENCOUNTER → 2024-07-30 | Outpatient (CLI) | payer BC, SELFPAY ==
--- NOTE | 2024-07-30 10:22 | BI_ITS ---
MAMMOGRAPHY - BILATERAL SCREENING REASON FOR EXAM: Female, 64 years old. Routine annual screening examination. PERTINENT HISTORY: Sister with breast cancer. Mother with breast cancer. Grandmother with breast cancer. TECHNIQUE: Digital bilateral breast lety (3D mammographic acquisition) in the CC and MLO projections. 2-D mediolateral oblique (MLO) and craniocaudad (CC) views of both breasts were obtained. CAD: Full Field Digital Mammography with Computer Added Detection was performed. COMPARISON: Comparison is made with prior study dated March 15, 2023 and February 01, 2022. FINDINGS: Breast Composition: The breasts are almost entirely fatty. There are no dominant masses or suspicious calcifications. Stable benign-appearing bilateral axillary lymph nodes. No other significant abnormalities are identified. There has been no significant change since the prior study. BI/SCRN MAMM (CAD)W/LETY BILAT IMPRESSION: Stable bilateral screening mammogram. Yearly follow-up mammogram recommended. (A) ASSESSMENT CATEGORY: BIRADS Category 2: Benign. A letter regarding these results will be sent to the patient by the facility within 30 days. Approximately 10% of breast cancers are not detected by mammography. A normal mammogram should not delay biopsy of a clinically suspicious abnormality. [id number] Electronically Signed: Nestor Bunn MD at 12:04 EDT ,
--- NOTE | 2024-07-30 10:25 | BD_ITS ---
STUDY: DUAL ENERGY X-RAY ABSORPTIOMETRY / DXA REASON FOR EXAM: Female, 64 years old. 627.8Menopausal postmenopausalBONE DENSITY REASON FOR EXAM TECHNIQUE: Bone Mineral Density (BMD) measurements of lumbar spine and bilateral hips were obtained. COMPARISON: Comparison is made with prior study February 01, 2022. FINDINGS: Lumbar Spine (L1-L4): g/cm2 (1.020) / T-score (-0.1) / Z-score (1.7) Findings are suggestive of normal bone density with a low fracture risk. Left Femur Total: g/cm2 (1.036) / T-score (0.8) / Z-score (2.1) Left Femoral Neck: g/cm2 (0.942) / T-score (0.8) / Z-score (2.4) Right Femur Total: g/cm2 (0.969) / T-score (0.2) / Z-score (1.5) Right Femoral Neck: g/cm2 (0.818) / T-score (-0.3) / Z-score (1.3) The T-Scores on the most recent prior examination were: Lumbar Spine (L1-L4): There has been improvement of bone density since the previous examination. Left Femur Total: which represents a worsening of 3%. Right Femur Total: which represents a worsening of 3.4%. BD/Dexa Bone Density Study IMPRESSION: The patient is considered normal as outlined below according to World Jon Organization (WHO) criteria with a low fracture risk. There has been worsening of bone density since the previous examination. Reference Information: The T-score is the number of standard deviations above or below the standard which is normal for young adults at their peak bone mineral density. The World Health Organization (WHO) interprets the T-scores as follows: Above -1 Normal bone density Between -1 and -2.5 Osteopenia Equal to / or below -2.5 Osteoporosis As a practical clinical guideline, osteopenia may be graded as follows: Mild -1 through -1.5 Moderate -1.6 through -2.0 Severe -2.1 through -2.4 The Z-score is the number of standard deviations above or below age-matched controls. A Z-score of less than -1.5 would be considered abnormal. References: 1. NIH Osteoporosis and Related Bone Diseases www osteo.org 2. International Society for Clinical Densitometry www iscd.org 3. National Osteoporosis Foundation www nof.org Electronically Signed: Nestor Bunn MD at 11:43 EDT ,
== END | disposition home or self-care (01) ==
LOC: OPBD 10:22
PROVIDERS: PCP Internal Medicine; Referring Provider Internal Medicine; Visit Provider Internal Medicine
DX: Z13.820 Encounter for screening for osteoporosis (principal); Z78.0 Asymptomatic menopausal state; Z12.31 Encounter for screening mammogram for malignant neoplasm of breast
CPT/HCPCS: 77063; 77067; 77080

== ENCOUNTER → 2024-12-11 | Outpatient (CLI) | payer MEDICARE, SELFPAY ==
[2024-12-11 08:57] LABS: Absolute Lymphocyte Count 2.38 X10^3/uL (0.83-4.51); Absolute Neutrophil Count 6.3 X10^3/uL (2.0-7.7); Basophil# 0.06 X10^3/uL; Basophil% 0.6 % (0-1); Eosinophil# 0.24 X10^3/uL; Eosinophils% 2.4 % (0-5); Hematocrit 41.1 % (37-47); Hemoglobin 13.1 g/dL (12.0-15.0); Lymphocyte # 2.38 X10^3/ul (0.83-4.51); Lymphocyte % 23.8 % (19-41); Mean Corp Hgb Conc 31.9 g/dL (32-36); Mean Corpuscular Hgb 25.8 pg (27.0-32.0); Mean Corpuscular Volume 80.9 fL (81-99); Mean Platelet Vol. 9.6 fl (6.2-12.0); Monocyte# 1.02 X10^3/uL; Monocyte% 10.2 % (0-10); NRBC Flagged by Analyzer 0 % (0-5); Neutrophil # 6.26 X10^3/uL (2.7-7.7); Neutrophil % 62.4 % (47-70); Platelet Count 331 K/mm3 (150-450); RBC Distribution Width CV 14.1 % (11.6-14.6); RBC Distribution Width SD 41.3 fl (35.1-43.9); Red Blood Count 5.08 M/mm3 (4.2-5.4)
[2024-12-11 09:39] LABS: AST(SGOT) 21 U/L (15-37); Alanine Aminotransfer ALT/SGPT 23 U/L (13-56); Albumin, Serum 3.6 g/dL (3.2-5.0); Alkaline Phosphatase 70 U/L (45-117); Anion Gap 5 (5-15); BUN 15 mg/dL (7-18); BUN/Creat Ratio 19.4 RATIO (10-20); Calcium,Total 9.1 mg/dL (8.5-10.1); Chloride 103 mmol/L (98-107); Cholesterol 116 mg/dL (200); Creatinine, Serum 0.78 mg/dL (0.55-1.02); EST Glomerular Filtration Rate 79 mL/min (>60); Est Glom Filt Rate - Afr Amer 96 mL/min (>60); Globulin 3.6 g/dL (2.2-4.2); Glucose 155 mg/dL (74-106); High Density Lipoprotein 50 mg/dL; Potassium 3.7 mmol/L (3.5-5.1); Protein, Total 7.2 g/dL (6.4-8.2); Sodium Level 137 mmol/L (136-145); Thyroid Stim Hormone (TSH) 0.816 uIU/mL (0.358-3.740); Triglycerides 60 mg/dL; Very Low Density Lipoprotein 12 mg/dL (5-40)
[2024-12-11 09:42] LABS: Vitamin B12 296 pg/mL (211-911); Vitamin D,25 Hydroxy 60.8 ng/mL
[2024-12-11 10:46] LABS: Microalbumin,Random Urine 9.8 mg/L (NO RANGE EST.); Microalbumin:Creatinine Ratio 17.7 mg/g CRE (<30 mg/g CRE)
== END | disposition home or self-care (01) ==
PROVIDERS: PCP Internal Medicine; Referring Provider Internal Medicine; Visit Provider Internal Medicine
DX: E11.9 Type 2 diabetes mellitus without complications (principal); E53.8 Deficiency of other specified B group vitamins
CPT/HCPCS: 36415; 80053; 80061; 82043; 82306; 82570; 82607; 84443; 85025

== ENCOUNTER → 2025-03-08 | Outpatient (CLI) | payer MEDICARE, SELFPAY ==
--- NOTE | 2025-03-08 18:20 | CT_ITS ---
PROCEDURE: EXTREMITY LOWER WITHOUT CONTRA 03/08/2025 REASON FOR EXAM: OSTEOARTHRITIS TECHNIQUE: Axial CT images of the left foot obtained with intravenous contrast. Coronal and Sagittal reconstruction series were provided. One or more dose reduction techniques were used (e.g., Automated exposure control, adjustment of the mA and/or kV according to patient size, use of iterative reconstruction technique). RADIATION DOSE SUMMARY: DLP: 427.9 mGycm COMPARISON: May 08, 2024 x-ray FINDINGS: There is hardware fusion of the hindfoot with complete bony fusion and cortication of the talus, calcaneus, navicular, and cuboid which appears intact. There is a 0.9 cm subcortical focus of sclerosis in the talar dome which may represent a developing osteochondral defect. There is a 0.4 cm focal lucency in the anterior medial talar dome superficial to hardware which may represent an osteochondral defect, coronal image 52/119. 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 The Lisfranc articulation appears intact. The Achilles shadow and plantar fascia origins appear intact. There is no visible focal soft tissue swelling or drainable collection. CT/Extremity Lower without Contra IMPRESSION: There is hardware fusion of the hindfoot with complete bony fusion and corticat ion of the talus, calcaneus, navicular, and cuboid which appears intact. There is a 0.9 cm subcortical focus of sclerosis in the talar dome which may re present a developing osteochondral defect. There is a 0.4 cm focal lucency in the anterior medial talar dome superficial t o hardware which may represent an osteochondral defect, coronal image 52/119. 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
== END | disposition home or self-care (01) ==
PROVIDERS: PCP Internal Medicine; Referring Provider Podiatrist; Visit Provider Podiatrist
DX: M19.072 Primary osteoarthritis, left ankle and foot (principal)
CPT/HCPCS: 73700

== ENCOUNTER → 2025-03-11 | Outpatient (CLI) | payer MEDICARE, SELFPAY ==
[2025-03-11 13:16] LABS: Vitamin B12 832 pg/mL (180-914)
== END | disposition home or self-care (01) ==
LOC: LAB 11:27
PROVIDERS: PCP Internal Medicine; Referring Provider Internal Medicine; Visit Provider Internal Medicine
DX: E53.8 Deficiency of other specified B group vitamins (principal)
CPT/HCPCS: 36415; 82607

== ENCOUNTER → 2025-07-07 | Outpatient (CLI) | payer MEDICARE, SELFPAY ==
--- NOTE | 2025-07-07 12:48 | VDLE_ITS ---
Reason For Study Reason For Study: Pain/Swelling RIGHT LEFT CFV is compressible, spontaneous, phasic, competent GSV is normal. and demonstrates normal augmentation. CFV is compressible, spontaneous, phasic, competent, Procedure and demonstrates normal augmentation. This is a venous duplex using B-mode, color flow and FV is compressible, spontaneous, phasic, competent spectral Doppler. and demonstrates normal augmentation. Exam performed in department. POP V is compressible, spontaneous, phasic, competent A preliminary report was called and/or faxed to and demonstrates normal augmentation. Narciso Aguilar DPM. T/P Trunk is compressible. PTV is compressible. LT PerV is compressible. VL/Venous Duplex US, Unilateral Interpretation Summary Deep veins of the left lower extremity are patent and compressible segmentally. There is no evidence of left lower extremity deep vein thrombosis. Valvular competence appears intact within the p roximal deep venous system on the left . The left great saphenous vein appears patent and compressible segmentally. The right common femoral vein is patent and compressible . Ordering Physician: Narciso Aguilar Referring Physician: Martine Maldonado M.D. Performed By: Sally Bunn RVT
== END | disposition home or self-care (01) ==
LOC: CVS 12:42
PROVIDERS: PCP Internal Medicine; Referring Provider Podiatrist; Visit Provider Podiatrist
DX: M79.662 Pain in left lower leg (principal); M79.89 Other specified soft tissue disorders
CPT/HCPCS: 93971

== ENCOUNTER → 2025-08-03 | Outpatient (CLI) | payer MEDICARE, SELFPAY ==
--- NOTE | 2025-08-03 12:30 | BI_ITS ---
EXAM: SCRN MAMM (CAD)W/LETY BILAT DATE: 08/03/2025 CLINICAL HISTORY: F, Age 65 y/o , SCREENING History of sister with breast cancer, mother with breast cancer and grandmother with breast cancer. TECHNIQUE: Procedure Code: BISMWCADBTOM Modality: MG Procedure: SCRN MAMM (CAD)W/LETY BILAT COMPARISON: Prior exam(s) dated July 30, 2024.. FINDINGS: TISSUE DENSITY: The breasts are almost entirely fatty. Bilateral Breast Mammographic Findings: No significant masses, calcifications or other abnormalities are identified. Stable benign-appearing bilateral axillary lymph nodes. No suspicious masses, areas of developing architectural distortion, or suspicious calcifications. There has been no significant interval change. BI/SCRN MAMM (CAD)W/LETY BILAT IMPRESSION: Stable bilateral screening mammogram. OVERALL FINAL ASSESSMENT BI-RADS 2: BENIGN RECOMMENDATION: Routine annual follow-up in 1 Year Additional Recommendation none A letter with findings and recommendations will be mailed to the patient. Reading Location: [facility]
--- NOTE | 2025-08-03 12:30 | BI_ITS ---
EXAM: SCRN MAMM (CAD)W/LETY BILAT DATE: 08/03/2025 CLINICAL HISTORY: F, Age 65 y/o , SCREENING History of sister with breast cancer, mother with breast cancer and grandmother with breast cancer. TECHNIQUE: Procedure Code: BISMWCADBTOM Modality: MG Procedure: SCRN MAMM (CAD)W/LETY BILAT COMPARISON: Prior exam(s) dated July 30, 2024.. FINDINGS: TISSUE DENSITY: The breasts are almost entirely fatty. Bilateral Breast Mammographic Findings: No significant masses, calcifications or other abnormalities are identified. Stable benign-appearing bilateral axillary lymph nodes. No suspicious masses, areas of developing architectural distortion, or suspicious calcifications. There has been no significant interval change. BI/SCRN MAMM (CAD)W/LETY BILAT IMPRESSION: Stable bilateral screening mammogram. OVERALL FINAL ASSESSMENT BI-RADS 2: BENIGN RECOMMENDATION: Routine annual follow-up in 1 Year Additional Recommendation none A letter with findings and recommendations will be mailed to the patient. Reading Location: [facility]
== END | disposition home or self-care (01) ==
LOC: OPBI 12:14
PROVIDERS: PCP Internal Medicine; Referring Provider Internal Medicine; Visit Provider Internal Medicine
DX: Z12.31 Encounter for screening mammogram for malignant neoplasm of breast (principal)
CPT/HCPCS: 77063; 77067

== ENCOUNTER → 2025-08-30 | Outpatient (CLI) | payer MEDICARE, SELFPAY ==
[2025-08-30 16:37] LABS: CRP < 3.00 mg/L (0.0-3.0)
[2025-08-30 16:50] LABS: Hematocrit 39.9 % (37-47); Hemoglobin 13.2 g/dL (12.0-15.0); Immature Granulocytes Count 0.040 X10^3/uL (0.0-0.0); Mean Corp Hgb Conc 33.1 g/dL (32-36); Mean Corpuscular Volume 80.8 fL (81-99); Mean Platelet Vol. 10.0 fl (6.2-12.0); NRBC Flagged by Analyzer 0 % (0-5); Platelet Count 300 K/mm3 (150-450); RBC Distribution Width CV 13.9 % (11.6-14.6); RBC Distribution Width SD 41.0 fl (35.1-43.9); Red Blood Count 4.94 M/mm3 (4.2-5.4); White Blood Count 7.5 K/mm3 (4.4-11.0)
== END | disposition home or self-care (01) ==
LOC: LAB 15:49
PROVIDERS: PCP Internal Medicine; Referring Provider Physician Assistant Surgical; Visit Provider Physician Assistant Surgical
DX: M25.561 Pain in right knee (principal); Z96.651 Presence of right artificial knee joint
CPT/HCPCS: 36415; 85025; 85652; 86140